=== PATIENT | male | born 1955 | race Caucasian/White ===

== ENCOUNTER 2020-06-23 14:39 | Inpatient (IN) | payer MEDICARE, OTHER ==
[~2020-06-23] VITALS: Ht 182.9 cm; Wt 63.2 kg
[2020-06-23] MEDS ORDERED: SODIUM CHLORIDE 0.9% 1,000 ML IV ONE ×3 (14:45→17:45)
[2020-06-23 15:12] LABS: Basophils # (auto) 0 10 ^3/uL (0-0.2); Basophils % (auto) 0.2 % (0.0-2.0); Eosinophils # (auto) 0 10 ^3/uL (0-0.8); Eosinophils % (auto) 0.1 % (0.0-7.0); Hemoglobin 12.7 g/dL (13.5-17.5); Lymphocytes # (auto) 0.3 10 ^3/uL (0.4-5.4); Lymphocytes % (auto) 3.8 % (10.0-50.0); Mean Corpuscular Hemoglobin 27.4 pg (28.0-32.0); Mean Corpuscular Hgb Conc. 32.6 g/dL (32.0-36.0); Monocytes # (auto) 0.5 10 ^3/uL (0-1.3); Monocytes % (auto) 5.2 % (0.0-12.0); Neutrophils # (auto) 8.1 10 ^3/uL (1.6-8.6); Neutrophils % (auto) 90.7 % (37.0-80.0); Red Blood Cells 4.65 10^6/uL (4.5-5.90); Red Cell Distribution Width 16.5 % (11.8-14.3)
[2020-06-23 15:29] LABS: Albumin 2.8 g/dL (3.4-5.0); Anion Gap 5 (5-15); Calcium 9.4 mg/dL (8.5-10.1); Carbon Dioxide 36 mmol/L (21-32); Chloride 91 mmol/L (98-107); Potassium 4.7 mmol/L (3.5-5.1); Sodium 132 mmol/L (136-145)
[2020-06-23 15:33] LABS: Alanine Aminotransferase 28 U/L (16-61); Aspartate Aminotransferase 16 U/L (15-37); Bilirubin, Total 0.7 mg/dL (0.2-1.0); GFR African American 111 mL/min; GFR Non-African American 92 mL/min; Total Protein 7.6 g/dL (6.4-8.2)
[2020-06-23 15:37] LABS: Alkaline Phosphatase 97 U/L (45-117)
[2020-06-23 15:38] LABS: Glucose 649 mg/dL (74-106)
[2020-06-23 15:40] LABS: INR 1.05 (0.9-1.15); Partial Thromboplastin Time 26.2 sec (23.0-31.2)
[2020-06-23] MEDS ORDERED: InsuLIN REG 1unit/0.01ml Soln (100units/ml) ONE (15:44)
[2020-06-23] MEDS ORDERED: InsuLIN REG 1unit/0.01ml Soln (100units/ml) IV ONE (15:45)
[2020-06-23 16:34] LABS: Blood Urea Nitrogen 16 mg/dL (7-18)
[2020-06-23] MEDS ORDERED: MORPHINE SULFATE INJECTION 2 MG/ML SYRG IV PRN ×2 (17:45)
[2020-06-23] MEDS ORDERED: ONDANSETRON HCL 4 MG/2 ML VIAL IV PRN (17:45)
[2020-06-23] MEDS ORDERED: DEXTROSE (50%) 50ML SYRG IV PRN (17:45)
[2020-06-23] MEDS ORDERED: NITROGLYCERIN 0.4 MG SL TAB SL PRN (17:45)
[2020-06-23] MEDS ORDERED: ALBUTEROL SULF 2.5 MG/0.5ML(0.5%) NEB SOLN NEB PRN (17:45)
[2020-06-23] MEDS ORDERED: IPRATROPIUM BROM 0.5 MG/2.5ML INH SOL NEB PRN (17:45)
[2020-06-23 18:06] LABS: Urine Bacteria NONE SEEN /hpf (None Seen); Urine Blood Negative /uL (Negative); Urine Specific Gravity 1.033 (1.001-1.035); Urine WBC 37 /hpf (0 - 3)
[2020-06-23 18:13] LABS: Cholesterol 90 mg/dL (< 200); Triglycerides 134 mg/dL (< 150)
[2020-06-23 18:16] LABS: HDL Cholesterol 42 mg/dL (40-59); LDL Cholesterol 33 mg/dL (< 100)
[2020-06-23 18:49] VITALS: BP 103/68
[2020-06-23] MEDS: SODIUM CHLORIDE 0.9% 1,000 ML IV SCH (19:26)
[2020-06-23] MEDS: InsuLIN REG 1unit/0.01ml Soln (100units/ml) SC SCH (19:57)
[2020-06-23] MEDS: ACCU-CHEK COMFORT CURVE STRIP VI SCH (19:57)
[2020-06-24] VITALS (18 sets, daily range): BP systolic 86–120; BP diastolic 55–76
[2020-06-24] MEDS: InsuLIN REG 1unit/0.01ml Soln (100units/ml) SC SCH ×7 (01:00→23:36)
[2020-06-24] MEDS: ACCU-CHEK COMFORT CURVE STRIP VI SCH ×7 (01:01→23:37)
[2020-06-24] MEDS: SODIUM CHLORIDE 0.9% 1,000 ML IV SCH ×3 (02:08→20:12)
[2020-06-24 08:01] LABS: Basophils # (auto) 0 10 ^3/uL (0-0.2); Basophils % (auto) 0.5 % (0.0-2.0); Eosinophils # (auto) 0.1 10 ^3/uL (0-0.8); Eosinophils % (auto) 2.7 % (0.0-7.0); Hematocrit 34.8 % (41.0-53.0); Hemoglobin 11.5 g/dL (13.5-17.5); Lymphocytes % (auto) 18.4 % (10.0-50.0); Mean Corpuscular Hemoglobin 27.5 pg (28.0-32.0); Mean Corpuscular Hgb Conc. 33.1 g/dL (32.0-36.0); Mean Corpuscular Volume 82.9 fL (80.0-100.0); Monocytes # (auto) 0.4 10 ^3/uL (0-1.3); Monocytes % (auto) 7.1 % (0.0-12.0); Neutrophils # (auto) 3.9 10 ^3/uL (1.6-8.6); Neutrophils % (auto) 71.3 % (37.0-80.0); Nucleated Red Blood Cells % 0.1 %; Red Cell Distribution Width 16.5 % (11.8-14.3); White Blood Cell 5.4 10^3/uL (4.4-10.8)
[2020-06-24 08:14] LABS: Albumin 2.4 g/dL (3.4-5.0); Calcium 8.7 mg/dL (8.5-10.1); Potassium 3.4 mmol/L (3.5-5.1)
[2020-06-24 08:17] LABS: BUN/Creatinine Ratio 23.7; Bilirubin, Total 0.5 mg/dL (0.2-1.0); Total Protein 6.5 g/dL (6.4-8.2)
[2020-06-24] MEDS ORDERED: cefTRIAXone 1GM/50ML D5W 50 ML IV SCH (09:00)
[2020-06-24] MEDS ORDERED: POTASSIUM EFFERVESENT TAB 25 MEQ GT ONE (10:00)
[2020-06-24] MEDS ORDERED: PIPERACILLIN-TAZOB 3.375GM 100 ML IV ONE (10:00)
[2020-06-24] MEDS: IPRATROPIUM BROM 0.5 MG/2.5ML INH SOL NEB SCH ×2 (11:40→19:07)
[2020-06-24] MEDS: BUDESONIDE (INHALATION) 0.5 MG/2 ML NEB NEB SCH ×2 (11:40→23:55)
[2020-06-24] MEDS: ALBUTEROL SULF 2.5 MG/0.5ML(0.5%) NEB SOLN NEB SCH ×2 (11:41→19:07)
[2020-06-24] MEDS: AZITHROMYCIN 500MG/ 250ML 250 ML IV SCH (12:26)
[2020-06-24] MEDS: PANTOPRAZOLE 40 MG/10 ML VIAL INJ IV SCH (12:27)
[2020-06-24] MEDS: Glucerna Carbsteady SHAKE Stawberry 8oz PO SCH ×4 (13:50→21:37)
[2020-06-24] MEDS ORDERED: metroNIDAZOLE 500MG/100ML 100 ML IV SCH (14:00)
[2020-06-24] MEDS: PIPERACILLIN-TAZOB 3.375GM 100 ML IV SCH ×2 (15:15→22:34)
[2020-06-25] MEDS: InsuLIN REG 1unit/0.01ml Soln (100units/ml) SC SCH ×5 (04:00→23:39)
[2020-06-25] MEDS: ACCU-CHEK COMFORT CURVE STRIP VI SCH ×5 (04:17→23:35)
[2020-06-25 05:00] VITALS: BP 100/55
[2020-06-25] MEDS: ALBUTEROL SULF 2.5 MG/0.5ML(0.5%) NEB SOLN NEB SCH ×4 (06:00→19:19)
[2020-06-25] MEDS: IPRATROPIUM BROM 0.5 MG/2.5ML INH SOL NEB SCH ×4 (06:00→19:19)
[2020-06-25 06:34] LABS: Basophils # (auto) 0 10 ^3/uL (0-0.2); Basophils % (auto) 0.6 % (0.0-2.0); Eosinophils # (auto) 0.2 10 ^3/uL (0-0.8); Eosinophils % (auto) 3.2 % (0.0-7.0); Hematocrit 34.5 % (41.0-53.0); Hemoglobin 11.4 g/dL (13.5-17.5); Lymphocytes # (auto) 0.5 10 ^3/uL (0.4-5.4); Lymphocytes % (auto) 9.2 % (10.0-50.0); Mean Corpuscular Hemoglobin 27.2 pg (28.0-32.0); Mean Corpuscular Hgb Conc. 33.1 g/dL (32.0-36.0); Monocytes # (auto) 0.3 10 ^3/uL (0-1.3); Monocytes % (auto) 5.1 % (0.0-12.0); Neutrophils # (auto) 4.1 10 ^3/uL (1.6-8.6); Neutrophils % (auto) 81.9 % (37.0-80.0); Nucleated Red Blood Cells % 0.2 %; Red Blood Cells 4.21 10^6/uL (4.5-5.90); Red Cell Distribution Width 16.4 % (11.8-14.3)
[2020-06-25] MEDS: SODIUM CHLORIDE 0.9% 1,000 ML IV SCH (06:39)
[2020-06-25] MEDS: PIPERACILLIN-TAZOB 3.375GM 100 ML IV SCH ×3 (06:40→21:59)
[2020-06-25] MEDS: Glucerna Carbsteady SHAKE Stawberry 8oz PO SCH ×4 (06:40→21:59)
[2020-06-25 06:52] LABS: Calcium 8.9 mg/dL (8.5-10.1); Potassium 3.7 mmol/L (3.5-5.1)
[2020-06-25 06:57] LABS: BUN/Creatinine Ratio 29.6
[2020-06-25] MEDS: BUDESONIDE (INHALATION) 0.5 MG/2 ML NEB NEB SCH ×2 (08:52→19:19)
[2020-06-25 09:00] VITALS: BP 95/60
[2020-06-25] MEDS: AZITHROMYCIN 500MG/ 250ML 250 ML IV SCH (09:35)
[2020-06-25] MEDS: PANTOPRAZOLE 40 MG/10 ML VIAL INJ IV SCH (09:35)
[2020-06-25] MEDS ORDERED: AMIT25TA12 PO (10:12)
[2020-06-25] MEDS ORDERED: LEVO150T10 PO (10:12)
[2020-06-25] MEDS ORDERED: ESZO1TAB21 PO (10:12)
[2020-06-25] MEDS ORDERED: LEVOTHYROXINE SODIUM 50 MCG TAB PO ONE (11:45)
[2020-06-25] MEDS ORDERED: DEXTROSE (50%) 50ML SYRG IV PRN (11:45)
[2020-06-25 13:00] VITALS: BP 88/56
[2020-06-25 17:00] VITALS: BP 94/63
[2020-06-25] MEDS: MUPIROCIN 2% OINT 15gm or 22gm EACHNOSTRI SCH (21:58)
[2020-06-25] MEDS: DOCUSATE ORAL LIQUID 100 MG/10 ML UD GT SCH (21:59)
[2020-06-25 22:00] VITALS: BP 101/60
[2020-06-25] MEDS ORDERED: DOCUSATE SOD 100 MG CAP PO SCH (22:00)
[2020-06-26 05:08] VITALS: BP 101/72
[2020-06-26] MEDS: PIPERACILLIN-TAZOB 3.375GM 100 ML IV SCH ×3 (05:33→21:07)
[2020-06-26] MEDS: Glucerna Carbsteady SHAKE Stawberry 8oz PO SCH ×5 (05:34→21:06)
[2020-06-26] MEDS: ACCU-CHEK COMFORT CURVE STRIP VI SCH ×4 (05:34→23:55)
[2020-06-26] MEDS: InsuLIN REG 1unit/0.01ml Soln (100units/ml) SC SCH ×3 (05:57→18:15)
[2020-06-26] MEDS: LEVOTHYROXINE SODIUM 50 MCG TAB PO SCH (06:02)
[2020-06-26] MEDS: IPRATROPIUM BROM 0.5 MG/2.5ML INH SOL NEB SCH ×3 (06:18→19:20)
[2020-06-26] MEDS: ALBUTEROL SULF 2.5 MG/0.5ML(0.5%) NEB SOLN NEB SCH ×3 (06:18→19:20)
[2020-06-26] MEDS: BUDESONIDE (INHALATION) 0.5 MG/2 ML NEB NEB SCH ×2 (06:19→19:20)
[2020-06-26 08:31] VITALS: BP 118/73
[2020-06-26] MEDS: DOCUSATE ORAL LIQUID 100 MG/10 ML UD GT SCH ×3 (10:00→21:06)
[2020-06-26] MEDS: AZITHROMYCIN 250 MG TAB PO SCH (10:02)
[2020-06-26] MEDS: PANTOPRAZOLE 40 MG/10 ML VIAL INJ IV SCH (10:03)
[2020-06-26] MEDS: FLORASTOR (S. BOULARDII) 250 MG CAP PO SCH (10:03)
[2020-06-26] MEDS: MUPIROCIN 2% OINT 15gm or 22gm EACHNOSTRI SCH ×2 (10:38→21:06)
[2020-06-26 12:37] VITALS: BP 93/54
[2020-06-26 16:38] VITALS: BP 88/58
[2020-06-26 21:24] VITALS: BP 88/58
[2020-06-26 22:00] VITALS: BP 98/67
[2020-06-27] MEDS: InsuLIN REG 1unit/0.01ml Soln (100units/ml) SC SCH ×5 (00:05→23:52)
[2020-06-27] MEDS ORDERED: GABA300C10 PO (00:21)
[2020-06-27] MEDS ORDERED: FLUT250M2 INH (00:21)
[2020-06-27] MEDS ORDERED: IPRIH INH (00:21)
[2020-06-27] MEDS ORDERED: PANT40T PO (00:21)
[2020-06-27] MEDS ORDERED: ESZO1TAB13 PO (00:21)
[2020-06-27] MEDS ORDERED: ROSU40TA PO (00:21)
[2020-06-27 05:00] VITALS: BP 93/63
[2020-06-27] MEDS: ACCU-CHEK COMFORT CURVE STRIP VI SCH ×4 (06:08→23:50)
[2020-06-27] MEDS: PIPERACILLIN-TAZOB 3.375GM 100 ML IV SCH ×3 (06:08→21:43)
[2020-06-27] MEDS: Glucerna Carbsteady SHAKE Stawberry 8oz PO SCH ×6 (06:08→21:42)
[2020-06-27] MEDS: LEVOTHYROXINE SODIUM 50 MCG TAB PO SCH (06:09)
[2020-06-27 07:29] LABS: Basophils # (auto) 0 10 ^3/uL (0-0.2); Basophils % (auto) 0.4 % (0.0-2.0); Eosinophils # (auto) 0.1 10 ^3/uL (0-0.8); Eosinophils % (auto) 2.1 % (0.0-7.0); Hematocrit 34.3 % (41.0-53.0); Hemoglobin 11.4 g/dL (13.5-17.5); Lymphocytes # (auto) 0.6 10 ^3/uL (0.4-5.4); Lymphocytes % (auto) 13.7 % (10.0-50.0); Mean Corpuscular Hemoglobin 27.3 pg (28.0-32.0); Mean Corpuscular Hgb Conc. 33.2 g/dL (32.0-36.0); Mean Corpuscular Volume 82.2 fL (80.0-100.0); Monocytes # (auto) 0.4 10 ^3/uL (0-1.3); Monocytes % (auto) 8.9 % (0.0-12.0); Neutrophils # (auto) 3.2 10 ^3/uL (1.6-8.6); Neutrophils % (auto) 74.9 % (37.0-80.0); Red Blood Cells 4.18 10^6/uL (4.5-5.90); Red Cell Distribution Width 15.9 % (11.8-14.3); White Blood Cell 4.3 10^3/uL (4.4-10.8)
[2020-06-27 07:46] LABS: Calcium 8.7 mg/dL (8.5-10.1); Potassium 3.4 mmol/L (3.5-5.1)
[2020-06-27 07:52] LABS: Albumin 2.4 g/dL (3.4-5.0); BUN/Creatinine Ratio 15.2; Bilirubin, Total 0.5 mg/dL (0.2-1.0); Total Protein 6.4 g/dL (6.4-8.2)
[2020-06-27] MEDS: ALBUTEROL SULF 2.5 MG/0.5ML(0.5%) NEB SOLN NEB SCH ×3 (07:52→18:15)
[2020-06-27] MEDS: IPRATROPIUM BROM 0.5 MG/2.5ML INH SOL NEB SCH ×3 (07:52→18:15)
[2020-06-27] MEDS: BUDESONIDE (INHALATION) 0.5 MG/2 ML NEB NEB SCH ×2 (07:52→18:15)
[2020-06-27 09:00] VITALS: BP 92/61
[2020-06-27] MEDS: DOCUSATE ORAL LIQUID 100 MG/10 ML UD GT SCH ×2 (09:09→21:43)
[2020-06-27] MEDS: FLORASTOR (S. BOULARDII) 250 MG CAP PO SCH (09:09)
[2020-06-27] MEDS: PANTOPRAZOLE 40 MG/10 ML VIAL INJ IV SCH (09:09)
[2020-06-27] MEDS: MUPIROCIN 2% OINT 15gm or 22gm EACHNOSTRI SCH ×2 (09:09→21:42)
[2020-06-27] MEDS: AZITHROMYCIN 250 MG TAB PO SCH (09:10)
[2020-06-27] MEDS ORDERED: POTASSIUM CHL 20 Meq TABLET PO ONE (11:45)
[2020-06-27 13:00] VITALS: BP 88/46
[2020-06-27] MEDS ORDERED: POTASSIUM CHLORIDE 20 MEQ, LIDOCAINE 1% (LOCAL ANESTH.) 2 ML in SODIUM CHL 0.9% 100 ML IV ONE (13:45)
[2020-06-27 17:00] VITALS: BP 103/68
[2020-06-27] MEDS: ESZOPICLONE 1 MG GT SCH (21:42)
[2020-06-27] MEDS: AMITRIPTYLINE HCL 25 MG TAB PO SCH (21:43)
[2020-06-27 22:00] VITALS: BP 98/65
[2020-06-28 05:00] VITALS: BP 113/72
[2020-06-28] MEDS: PIPERACILLIN-TAZOB 3.375GM 100 ML IV SCH ×3 (06:12→21:20)
[2020-06-28] MEDS: Glucerna Carbsteady SHAKE Stawberry 8oz PO SCH ×6 (06:12→21:21)
[2020-06-28] MEDS: InsuLIN REG 1unit/0.01ml Soln (100units/ml) SC SCH ×4 (06:12→23:20)
[2020-06-28] MEDS: ACCU-CHEK COMFORT CURVE STRIP VI SCH ×4 (06:13→23:18)
[2020-06-28] MEDS: LEVOTHYROXINE SODIUM 50 MCG TAB PO SCH (06:13)
[2020-06-28 06:29] LABS: Basophils # (auto) 0 10 ^3/uL (0-0.2); Basophils % (auto) 0.2 % (0.0-2.0); Eosinophils # (auto) 0 10 ^3/uL (0-0.8); Eosinophils % (auto) 0.7 % (0.0-7.0); Hematocrit 35.2 % (41.0-53.0); Hemoglobin 11.7 g/dL (13.5-17.5); Lymphocytes # (auto) 0.6 10 ^3/uL (0.4-5.4); Lymphocytes % (auto) 9.5 % (10.0-50.0); Mean Corpuscular Hemoglobin 27.6 pg (28.0-32.0); Mean Corpuscular Hgb Conc. 33.2 g/dL (32.0-36.0); Monocytes # (auto) 0.5 10 ^3/uL (0-1.3); Monocytes % (auto) 7.2 % (0.0-12.0); Neutrophils # (auto) 5.3 10 ^3/uL (1.6-8.6); Neutrophils % (auto) 82.4 % (37.0-80.0); Red Blood Cells 4.24 10^6/uL (4.5-5.90); Red Cell Distribution Width 16.2 % (11.8-14.3); White Blood Cell 6.4 10^3/uL (4.4-10.8)
[2020-06-28] MEDS: BUDESONIDE (INHALATION) 0.5 MG/2 ML NEB NEB SCH ×2 (06:37→19:01)
[2020-06-28] MEDS: ALBUTEROL SULF 2.5 MG/0.5ML(0.5%) NEB SOLN NEB SCH ×3 (06:37→19:01)
[2020-06-28] MEDS: IPRATROPIUM BROM 0.5 MG/2.5ML INH SOL NEB SCH ×3 (06:37→19:01)
[2020-06-28 06:48] LABS: Potassium 3.7 mmol/L (3.5-5.1)
[2020-06-28 06:56] LABS: Albumin 2.5 g/dL (3.4-5.0); BUN/Creatinine Ratio 19.2; Bilirubin, Total 0.6 mg/dL (0.2-1.0); Calcium 9.1 mg/dL (8.5-10.1); Total Protein 6.8 g/dL (6.4-8.2)
[2020-06-28] MEDS: DOCUSATE ORAL LIQUID 100 MG/10 ML UD GT SCH ×2 (08:16→21:49)
[2020-06-28] MEDS: PANTOPRAZOLE 40 MG/10 ML VIAL INJ IV SCH (08:16)
[2020-06-28] MEDS: MUPIROCIN 2% OINT 15gm or 22gm EACHNOSTRI SCH ×2 (08:16→21:21)
[2020-06-28] MEDS: FLORASTOR (S. BOULARDII) 250 MG CAP PO SCH (08:17)
[2020-06-28] MEDS: AZITHROMYCIN 250 MG TAB PO SCH (08:17)
[2020-06-28 08:36] VITALS: BP 104/65
[2020-06-28] MEDS ORDERED: metFORMIN HYDROCHLORIDE 500 MG TAB PO ONE (10:45)
[2020-06-28 13:00] VITALS: BP 99/68
[2020-06-28 17:00] VITALS: BP 131/77
[2020-06-28] MEDS: metFORMIN HYDROCHLORIDE 500 MG TAB PO SCH (17:45)
[2020-06-28] MEDS: AMITRIPTYLINE HCL 25 MG TAB PO SCH (21:20)
[2020-06-28] MEDS: ESZOPICLONE 1 MG GT SCH (21:20)
[2020-06-28 22:00] VITALS: BP 111/63
[2020-06-29 05:00] VITALS: BP 111/75
[2020-06-29] MEDS: InsuLIN REG 1unit/0.01ml Soln (100units/ml) SC SCH ×4 (06:00→23:33)
[2020-06-29] MEDS: ACCU-CHEK COMFORT CURVE STRIP VI SCH ×4 (06:26→23:32)
[2020-06-29] MEDS: PIPERACILLIN-TAZOB 3.375GM 100 ML IV SCH (06:26)
[2020-06-29] MEDS: Glucerna Carbsteady SHAKE Stawberry 8oz PO SCH ×4 (06:26→15:45)
[2020-06-29] MEDS: LEVOTHYROXINE SODIUM 50 MCG TAB PO SCH (06:27)
[2020-06-29] MEDS: IPRATROPIUM BROM 0.5 MG/2.5ML INH SOL NEB SCH ×3 (07:52→18:55)
[2020-06-29] MEDS: BUDESONIDE (INHALATION) 0.5 MG/2 ML NEB NEB SCH ×2 (07:52→18:55)
[2020-06-29] MEDS: ALBUTEROL SULF 2.5 MG/0.5ML(0.5%) NEB SOLN NEB SCH ×3 (07:52→18:55)
[2020-06-29 08:21] LABS: Basophils # (auto) 0 10 ^3/uL (0-0.2); Basophils % (auto) 0.4 % (0.0-2.0); Eosinophils # (auto) 0.1 10 ^3/uL (0-0.8); Eosinophils % (auto) 2.3 % (0.0-7.0); Hematocrit 36.6 % (41.0-53.0); Hemoglobin 12.3 g/dL (13.5-17.5); Lymphocytes # (auto) 0.6 10 ^3/uL (0.4-5.4); Lymphocytes % (auto) 11.8 % (10.0-50.0); Mean Corpuscular Hemoglobin 27.7 pg (28.0-32.0); Mean Corpuscular Hgb Conc. 33.6 g/dL (32.0-36.0); Mean Corpuscular Volume 82.6 fL (80.0-100.0); Monocytes # (auto) 0.4 10 ^3/uL (0-1.3); Monocytes % (auto) 8.1 % (0.0-12.0); Neutrophils # (auto) 4.3 10 ^3/uL (1.6-8.6); Neutrophils % (auto) 77.4 % (37.0-80.0); Nucleated Red Blood Cells % 0.2 %; Red Blood Cells 4.43 10^6/uL (4.5-5.90); Red Cell Distribution Width 16.6 % (11.8-14.3); White Blood Cell 5.5 10^3/uL (4.4-10.8)
[2020-06-29 08:47] VITALS: BP 98/49
[2020-06-29 09:00] LABS: Potassium 3.5 mmol/L (3.5-5.1)
[2020-06-29 09:17] LABS: BUN/Creatinine Ratio 18.2; Calcium 9.6 mg/dL (8.5-10.1)
[2020-06-29] MEDS: DOCUSATE ORAL LIQUID 100 MG/10 ML UD GT SCH ×2 (10:00→21:26)
[2020-06-29] MEDS: metFORMIN HYDROCHLORIDE 500 MG TAB PO SCH (10:12)
[2020-06-29] MEDS: MUPIROCIN 2% OINT 15gm or 22gm EACHNOSTRI SCH ×2 (10:12→21:19)
[2020-06-29] MEDS: AZITHROMYCIN 250 MG TAB PO SCH (10:13)
[2020-06-29] MEDS: FLORASTOR (S. BOULARDII) 250 MG CAP PO SCH (10:13)
[2020-06-29] MEDS: PANTOPRAZOLE 40 MG/10 ML VIAL INJ IV SCH (10:13)
[2020-06-29] MEDS ORDERED: VANCOMYCIN PER PHARMACY 0 MG IV SCH (11:15)
[2020-06-29] MEDS ORDERED: FAMOTIDINE 20 MG TAB PO ONE (12:00)
[2020-06-29] MEDS ORDERED: levoFLOXacin 500MG 100 ML IV ONE (12:00)
[2020-06-29 13:00] VITALS: BP 98/65
[2020-06-29] MEDS ORDERED: GABAPENTIN 300 MG CAP PO SCH (14:00)
[2020-06-29] MEDS: VANCOMYCIN 750mg/250ml 250 ML IV SCH ×2 (15:00→20:33)
[2020-06-29 16:40] VITALS: BP 93/63
[2020-06-29] MEDS: metFORMIN HYDROCHLORIDE 500 MG TAB PEG SCH (18:02)
[2020-06-29] MEDS: Glucerna Carbsteady SHAKE Stawberry 8oz PEG SCH ×2 (18:02→20:33)
[2020-06-29] MEDS: GABAPENTIN 300 MG CAP PEG SCH (21:19)
[2020-06-29] MEDS: AMITRIPTYLINE HCL 25 MG TAB PO SCH (21:25)
[2020-06-29] MEDS: ESZOPICLONE 1 MG GT SCH (21:26)
[2020-06-29 22:00] VITALS: BP 95/57
[2020-06-30 01:05] VITALS: BP 95/57
[2020-06-30] MEDS: VANCOMYCIN 750mg/250ml 250 ML IV SCH ×2 (04:35→12:58)
[2020-06-30 05:00] VITALS: BP 99/68
[2020-06-30] MEDS: Glucerna Carbsteady SHAKE Stawberry 8oz PEG SCH ×6 (06:03→21:44)
[2020-06-30] MEDS: ACCU-CHEK COMFORT CURVE STRIP VI SCH ×4 (06:03→23:18)
[2020-06-30] MEDS: InsuLIN REG 1unit/0.01ml Soln (100units/ml) SC SCH ×4 (06:08→23:19)
[2020-06-30] MEDS: GABAPENTIN 300 MG CAP PEG SCH ×3 (06:11→21:45)
[2020-06-30] MEDS: LEVOTHYROXINE SODIUM 50 MCG TAB PEG SCH (06:12)
[2020-06-30] MEDS: BUDESONIDE (INHALATION) 0.5 MG/2 ML NEB NEB SCH ×2 (07:23→19:01)
[2020-06-30] MEDS: IPRATROPIUM BROM 0.5 MG/2.5ML INH SOL NEB SCH ×3 (07:23→19:02)
[2020-06-30] MEDS: ALBUTEROL SULF 2.5 MG/0.5ML(0.5%) NEB SOLN NEB SCH ×3 (07:23→19:02)
[2020-06-30 08:40] VITALS: BP 88/60
[2020-06-30] MEDS: MUPIROCIN 2% OINT 15gm or 22gm EACHNOSTRI SCH (08:40)
[2020-06-30] MEDS: FLORASTOR (S. BOULARDII) 250 MG CAP PEG SCH (08:40)
[2020-06-30] MEDS: DOCUSATE ORAL LIQUID 100 MG/10 ML UD GT SCH ×2 (08:40→21:45)
[2020-06-30] MEDS: metFORMIN HYDROCHLORIDE 500 MG TAB PEG SCH ×2 (08:40→18:24)
[2020-06-30] MEDS: levoFLOXacin 500MG 100 ML IV SCH (08:40)
[2020-06-30] MEDS: FAMOTIDINE 20 MG TAB PEG SCH (08:41)
[2020-06-30] MEDS ORDERED: FAMOTIDINE 20 MG TAB PO SCH (10:00)
[2020-06-30 13:00] VITALS: BP 85/61
[2020-06-30] MEDS ORDERED: ACETAMINOPHEN 325 MG TAB PO PRN (17:45)
[2020-06-30] MEDS: ESZOPICLONE 1 MG GT SCH (21:44)
[2020-06-30] MEDS: AMITRIPTYLINE HCL 25 MG TAB PO SCH (21:45)
[2020-06-30] MEDS ORDERED: ALBUMIN 5% 250 ML IV ONE (22:00)
[2020-06-30 22:35] VITALS: BP 90/61
[2020-06-30] MEDS: VANCOMYCIN 1GM/250ML 250 ML IV SCH (23:11)
[2020-07-01 05:13] VITALS: BP 94/66
[2020-07-01] MEDS: InsuLIN REG 1unit/0.01ml Soln (100units/ml) SC SCH ×4 (06:00→23:42)
[2020-07-01] MEDS: ACCU-CHEK COMFORT CURVE STRIP VI SCH ×4 (06:06→23:41)
[2020-07-01] MEDS: GABAPENTIN 300 MG CAP PEG SCH ×3 (06:15→21:19)
[2020-07-01] MEDS: Glucerna Carbsteady SHAKE Stawberry 8oz PEG SCH ×6 (06:15→21:09)
[2020-07-01] MEDS: LEVOTHYROXINE SODIUM 50 MCG TAB PEG SCH (06:15)
[2020-07-01] MEDS: ALBUTEROL SULF 2.5 MG/0.5ML(0.5%) NEB SOLN NEB SCH ×3 (06:48→18:57)
[2020-07-01] MEDS: IPRATROPIUM BROM 0.5 MG/2.5ML INH SOL NEB SCH ×3 (06:48→18:57)
[2020-07-01] MEDS: BUDESONIDE (INHALATION) 0.5 MG/2 ML NEB NEB SCH ×2 (06:48→18:56)
[2020-07-01] MEDS: metFORMIN HYDROCHLORIDE 500 MG TAB PEG SCH ×2 (08:20→17:52)
[2020-07-01 09:00] VITALS: BP 91/58
[2020-07-01] MEDS: VANCOMYCIN 1GM/250ML 250 ML IV SCH (09:26)
[2020-07-01] MEDS: DOCUSATE ORAL LIQUID 100 MG/10 ML UD GT SCH ×2 (10:00→21:18)
[2020-07-01] MEDS: FLORASTOR (S. BOULARDII) 250 MG CAP PEG SCH (11:13)
[2020-07-01] MEDS: levoFLOXacin 500MG 100 ML IV SCH (11:13)
[2020-07-01] MEDS: FAMOTIDINE 20 MG TAB PEG SCH (11:14)
[2020-07-01] MEDS: DOXYCYCLINE 100MG/250ML 250 ML IV SCH ×2 (12:12→22:00)
[2020-07-01 13:00] VITALS: BP 87/58
[2020-07-01 16:36] VITALS: BP 85/50
[2020-07-01] MEDS: ESZOPICLONE 1 MG GT SCH (21:18)
[2020-07-01] MEDS: AMITRIPTYLINE HCL 25 MG TAB PO SCH (21:19)
[2020-07-01 22:00] VITALS: BP 91/62
[2020-07-02 04:37] VITALS: BP 105/67
[2020-07-02] MEDS: ALBUTEROL SULF 2.5 MG/0.5ML(0.5%) NEB SOLN NEB SCH ×2 (06:01→11:10)
[2020-07-02] MEDS: IPRATROPIUM BROM 0.5 MG/2.5ML INH SOL NEB SCH ×2 (06:01→11:09)
[2020-07-02] MEDS: BUDESONIDE (INHALATION) 0.5 MG/2 ML NEB NEB SCH (06:01)
[2020-07-02] MEDS: ACCU-CHEK COMFORT CURVE STRIP VI SCH ×2 (06:06→11:39)
[2020-07-02] MEDS: GABAPENTIN 300 MG CAP PEG SCH ×2 (06:06→13:13)
[2020-07-02] MEDS: Glucerna Carbsteady SHAKE Stawberry 8oz PEG SCH ×3 (06:06→11:39)
[2020-07-02] MEDS: InsuLIN REG 1unit/0.01ml Soln (100units/ml) SC SCH ×2 (06:09→11:46)
[2020-07-02] MEDS: LEVOTHYROXINE SODIUM 50 MCG TAB PEG SCH (06:12)
[2020-07-02] MEDS: metFORMIN HYDROCHLORIDE 500 MG TAB PEG SCH (07:53)
[2020-07-02 08:33] VITALS: BP 99/64
[2020-07-02] MEDS: levoFLOXacin 500MG 100 ML IV SCH (09:00)
[2020-07-02] MEDS: DOCUSATE ORAL LIQUID 100 MG/10 ML UD GT SCH (09:00)
[2020-07-02] MEDS: FLORASTOR (S. BOULARDII) 250 MG CAP PEG SCH (09:00)
[2020-07-02] MEDS: FAMOTIDINE 20 MG TAB PEG SCH (09:00)
[2020-07-02] MEDS: DOXYCYCLINE 100MG/250ML 250 ML IV SCH (10:25)
[2020-07-02 10:48] VITALS: BP 99/64
[2020-07-02 12:47] VITALS: BP 96/60
[2020-07-29] MEDS ORDERED: LEVO750T8 PO (14:06)
== END 2020-07-02 14:25 | disposition home health service (06) | DRG 177 ==
LOC: EDBD 14:39 → ER 14:39 → TELE 17:39 → DOU IN ICU 06-24 05:40 → TELE-EAST 06-24 21:27
PROVIDERS: ADMIT Nurse Practitioner Acute Care; ATTEND Internal Medicine
DX: J69.0 Pneumonitis due to inhalation of food and vomit (principal); N17.0 Acute kidney failure with tubular necrosis; J96.21 Acute and chronic respiratory failure with hypoxia; N39.0 Urinary tract infection, site not specified; Z68.1 Body mass index [BMI] 19.9 or less, adult; E44.0 Moderate protein-calorie malnutrition; E11.65 Type 2 diabetes mellitus with hyperglycemia; J44.9 Chronic obstructive pulmonary disease, unspecified; E86.0 Dehydration; R13.10 Dysphagia, unspecified; E03.9 Hypothyroidism, unspecified; A49.02 Methicillin resistant Staphylococcus aureus infection, unspecified site; E11.22 Type 2 diabetes mellitus with diabetic chronic kidney disease; E11.40 Type 2 diabetes mellitus with diabetic neuropathy, unspecified; E78.5 Hyperlipidemia, unspecified; E87.6 Hypokalemia; I12.9 Hypertensive chronic kidney disease with stage 1 through stage 4 chronic kidney disease, or unspecified chronic kidney disease; N18.9 Chronic kidney disease, unspecified; N40.0 Benign prostatic hyperplasia without lower urinary tract symptoms; Z20.822 Contact with and (suspected) exposure to COVID-19; Z79.4 Long term (current) use of insulin; Z87.01 Personal history of pneumonia (recurrent); Z87.891 Personal history of nicotine dependence; Z92.21 Personal history of antineoplastic chemotherapy; Z92.3 Personal history of irradiation; Z85.819 Personal history of malignant neoplasm of unspecified site of lip, oral cavity, and pharynx; Z93.1 Gastrostomy status; Z86.73 Personal history of transient ischemic attack (TIA), and cerebral infarction without residual deficits
CPT/HCPCS: 36415; 36600; 71045; 80048; 80053; 80061; 80202; 81001; 82565; 82805; 82962; 83036; 83605; 83880; 84443; 84484; 85025; 85379; 85610; 85730; 87040; 87070; 87077; 87081; 87086; 87186; 87205; 87426; 92610; 93005; 93306; 93970; 94640; 96361; 96374; 97110; 97116; 97163; C9113; G0378; J1815; J1956; J2001; J2543; J3490

== ENCOUNTER 2020-07-24 22:23 | Inpatient (IN) | payer MEDICARE, OTHER ==
[~2020-07-24] VITALS: Ht 182.9 cm; Wt 62.2 kg
[~2020-07-24 22:23] MED LIST: AMIT25TA9 PO; ESZO1TAB13 PO; FLUT250M2 INH; GABA300C10 PO; IPRIH INH; LEVO150T10 PO; PANT40T PO; ROSU40TA PO
[2020-07-24 23:39] LABS: Basophils # (auto) 0 10 ^3/uL (0-0.2); Basophils % (auto) 0.1 % (0.0-2.0); Eosinophils # (auto) 0 10 ^3/uL (0-0.8); Eosinophils % (auto) 0.5 % (0.0-7.0); Hematocrit 33.7 % (41.0-53.0); Hemoglobin 11.4 g/dL (13.5-17.5); Lymphocytes # (auto) 0.4 10 ^3/uL (0.4-5.4); Lymphocytes % (auto) 3.6 % (10.0-50.0); Mean Corpuscular Hemoglobin 27.3 pg (28.0-32.0); Mean Corpuscular Hgb Conc. 33.8 g/dL (32.0-36.0); Mean Corpuscular Volume 80.7 fL (80.0-100.0); Monocytes # (auto) 0.4 10 ^3/uL (0-1.3); Monocytes % (auto) 4.6 % (0.0-12.0); Neutrophils # (auto) 8.9 10 ^3/uL (1.6-8.6); Neutrophils % (auto) 91.2 % (37.0-80.0); Nucleated Red Blood Cells % 0.3 %; Platelet Count (auto) 184 10^3/uL (140-450); Red Blood Cells 4.18 10^6/uL (4.5-5.90); Red Cell Distribution Width 15.6 % (11.8-14.3); White Blood Cell 9.8 10^3/uL (4.4-10.8)
[2020-07-24] MEDS ORDERED: SODIUM CHLORIDE 0.9% 2,000 ML IV ONE (23:45)
[2020-07-24] MEDS ORDERED: VANCOMYCIN 1GM/250ML 250 ML IV ONE (23:45)
[2020-07-24 23:53] LABS: Albumin 2.7 g/dL (3.4-5.0); Anion Gap 7 (5-15); BUN/Creatinine Ratio 29.6; Blood Urea Nitrogen 16 mg/dL (7-18); Calcium 8.7 mg/dL (8.5-10.1); Carbon Dioxide 30 mmol/L (21-32); Chloride 100 mmol/L (98-107); GFR African American 198 mL/min; GFR Non-African American 163 mL/min; Glucose 163 mg/dL (74-106); Potassium 4.1 mmol/L (3.5-5.1); Sodium 137 mmol/L (136-145)
[2020-07-24 23:56] LABS: Lactic Acid w/Reflex 2.4 mmol/L (0.4-2.0)
[2020-07-25] MEDS ORDERED: MEROPENEM 1GM IVPB 100 ML IV ONE (00:01)
[2020-07-25 00:09] LABS: Alanine Aminotransferase 33 U/L (16-61); Alkaline Phosphatase 82 U/L (45-117); Aspartate Aminotransferase 25 U/L (15-37); Bilirubin, Total 0.5 mg/dL (0.2-1.0); Total Protein 7.1 g/dL (6.4-8.2)
[2020-07-25] MEDS: MEROPENEM 1GM IVPB 100 ML IV SCH ×3 (00:58→19:38)
[2020-07-25] MEDS ORDERED: PIPERACILLIN-TAZO 4.5GM 100 ML IV ONE (02:00)
[2020-07-25] MEDS ORDERED: SODIUM CHLORIDE 0.9% 1,000 ML IV ONE (03:15)
[2020-07-25 04:51] LABS: Urine Bacteria NONE SEEN /hpf (None Seen); Urine Blood Negative /uL (Negative); Urine Specific Gravity 1.007 (1.001-1.035); Urine WBC 1 /hpf (0 - 3)
[2020-07-25] MEDS ORDERED: PATIENTS OWN MEDICATION IV SCH (06:00)
[2020-07-25] MEDS ORDERED: HYDROcodone-ACET 5/325MG TAB PO PRN (08:15)
[2020-07-25] MEDS ORDERED: NITROGLYCERIN 0.4 MG SL TAB SL PRN (08:15)
[2020-07-25] MEDS ORDERED: MORPHINE SULF INJ 2 MG/ML SYRINGE 1ML IV PRN (08:15)
[2020-07-25] MEDS ORDERED: DOCUSATE SOD 100 MG CAP PO PRN (08:15)
[2020-07-25] MEDS ORDERED: IPRATROPIUM BROM 0.5 MG/2.5ML INH SOL NEB PRN (08:15)
[2020-07-25] MEDS ORDERED: ONDANSETRON HCL 4 MG/2 ML VIAL IV PRN (08:15)
[2020-07-25] MEDS ORDERED: ALBUTEROL SULF 2.5 MG/0.5ML(0.5%) NEB SOLN NEB PRN (08:15)
[2020-07-25 08:43] VITALS: BP 103/64
[2020-07-25 09:25] LABS: Hemoglobin 10.2 g/dL (13.5-17.5); Mean Corpuscular Hemoglobin 26.8 pg (28.0-32.0)
[2020-07-25 09:26] LABS: Basophils # (auto) 0 10 ^3/uL (0-0.2); Basophils % (auto) 0.1 % (0.0-2.0); Eosinophils # (auto) 0 10 ^3/uL (0-0.8); Eosinophils % (auto) 0.3 % (0.0-7.0); Hematocrit 30.6 % (41.0-53.0); Lymphocytes # (auto) 0.7 10 ^3/uL (0.4-5.4); Lymphocytes % (auto) 7.9 % (10.0-50.0); Mean Corpuscular Hgb Conc. 33.2 g/dL (32.0-36.0); Mean Corpuscular Volume 80.8 fL (80.0-100.0); Monocytes # (auto) 0.4 10 ^3/uL (0-1.3); Monocytes % (auto) 4.7 % (0.0-12.0); Neutrophils # (auto) 7.7 10 ^3/uL (1.6-8.6); Nucleated Red Blood Cells % 0.1 %; Platelet Count (auto) 168 10^3/uL (140-450); Red Blood Cells 3.79 10^6/uL (4.5-5.90); Red Cell Distribution Width 15.5 % (11.8-14.3); White Blood Cell 8.9 10^3/uL (4.4-10.8)
[2020-07-25] MEDS: ACETAMINOPHEN 325 MG TAB PO PRN ×3 (09:31→23:28)
[2020-07-25 09:47] LABS: Albumin 2.3 g/dL (3.4-5.0); Calcium 8.8 mg/dL (8.5-10.1); Potassium 3.7 mmol/L (3.5-5.1)
[2020-07-25 09:51] LABS: BUN/Creatinine Ratio 39.3; Bilirubin, Total 0.4 mg/dL (0.2-1.0); Total Protein 6.5 g/dL (6.4-8.2)
[2020-07-25 11:21] VITALS: BP 105/68
[2020-07-25 12:53] VITALS: BP 105/68
[2020-07-25] MEDS ORDERED: Glucerna 1.2 Cal 1Liter BOTTLE GT SCH (15:46)
[2020-07-25 16:51] VITALS: BP 108/72
[2020-07-25] MEDS ORDERED: METF-929 PO (18:03)
[2020-07-25] MEDS: FAMOTIDINE (10MG/ML) 2ML VL IV SCH ×2 (19:30→22:00)
[2020-07-25] MEDS: ZINC SULFATE 220mg CAP or TAB PO SCH (19:31)
[2020-07-25] MEDS: MULTIPLE VITAMIN TAB PO SCH (19:31)
[2020-07-25] MEDS: ASCORBIC ACID 500 MG TAB PO SCH ×2 (19:31→22:00)
[2020-07-25] MEDS: ENOXAPARIN SOD 40 MG/0.4 ML SYRINGE SC SCH (19:33)
[2020-07-25] MEDS: AZITHROMYCIN 500MG/ 250ML 250 ML IV SCH (19:34)
[2020-07-25] MEDS: NutriHep RTU 240 mL Unflavored PO SCH (20:00)
[2020-07-25 22:26] VITALS: BP 104/65
[2020-07-25] MEDS ORDERED: PATIENTS OWN MEDICATION PEG PRN (22:45)
[2020-07-25] MEDS ORDERED: ZOLPIDEM TARTRATE 5 MG TAB GT PRN (23:00)
[2020-07-26] MEDS: MEROPENEM 1GM IVPB 100 ML IV SCH ×3 (00:30→17:10)
[2020-07-26 05:15] VITALS: BP 123/75
[2020-07-26 06:58] LABS: Basophils # (auto) 0 10 ^3/uL (0-0.2); Basophils % (auto) 0.3 % (0.0-2.0); Eosinophils # (auto) 0.1 10 ^3/uL (0-0.8); Hematocrit 31.9 % (41.0-53.0); Lymphocytes # (auto) 0.5 10 ^3/uL (0.4-5.4); Lymphocytes % (auto) 9.7 % (10.0-50.0); Mean Corpuscular Hemoglobin 27.4 pg (28.0-32.0); Mean Corpuscular Hgb Conc. 34.4 g/dL (32.0-36.0); Mean Corpuscular Volume 79.7 fL (80.0-100.0); Monocytes # (auto) 0.4 10 ^3/uL (0-1.3); Monocytes % (auto) 6.6 % (0.0-12.0); Neutrophils # (auto) 4.4 10 ^3/uL (1.6-8.6); Neutrophils % (auto) 81.4 % (37.0-80.0); Nucleated Red Blood Cells % 0.5 %; Platelet Count (auto) 170 10^3/uL (140-450); Red Blood Cells 4.01 10^6/uL (4.5-5.90); Red Cell Distribution Width 15.8 % (11.8-14.3); White Blood Cell 5.4 10^3/uL (4.4-10.8)
[2020-07-26] MEDS: NutriHep RTU 240 mL Unflavored PO SCH ×3 (07:00→14:00)
[2020-07-26 07:13] LABS: INR 1.05 (0.9-1.15)
[2020-07-26 07:19] LABS: Albumin 2.6 g/dL (3.4-5.0); Potassium 3.7 mmol/L (3.5-5.1)
[2020-07-26 07:22] LABS: BUN/Creatinine Ratio 26.5; Bilirubin, Total 0.4 mg/dL (0.2-1.0); Total Protein 7.5 g/dL (6.4-8.2)
[2020-07-26] MEDS: ACETAMINOPHEN 325 MG TAB PO PRN ×2 (08:45→20:30)
[2020-07-26 09:00] VITALS: BP 117/71
[2020-07-26] MEDS: FAMOTIDINE (10MG/ML) 2ML VL IV SCH (09:14)
[2020-07-26] MEDS: ZINC SULFATE 220mg CAP or TAB PO SCH (09:14)
[2020-07-26] MEDS: ENOXAPARIN SOD 40 MG/0.4 ML SYRINGE SC SCH (09:14)
[2020-07-26] MEDS: ASCORBIC ACID 500 MG TAB PO SCH ×2 (09:14→22:11)
[2020-07-26] MEDS: MULTIPLE VITAMIN TAB PO SCH (09:14)
[2020-07-26] MEDS: AZITHROMYCIN 500MG/ 250ML 250 ML IV SCH (10:28)
[2020-07-26 13:00] VITALS: BP 105/68
[2020-07-26] MEDS ORDERED: Glucerna 1.2 Cal 1Liter BOTTLE GT SCH (13:30)
[2020-07-26] MEDS ORDERED: DEXTROSE (50%) 50ML SYRG IV PRN (14:00)
[2020-07-26] MEDS: GABAPENTIN 300 MG CAP PEG SCH ×2 (14:50→22:11)
[2020-07-26 17:00] VITALS: BP 102/67
[2020-07-26] MEDS: metFORMIN HYDROCHLORIDE 500 MG TAB PEG SCH (17:41)
[2020-07-26] MEDS: ACCU-CHEK COMFORT CURVE STRIP VI SCH ×2 (17:41→22:11)
[2020-07-26 22:00] VITALS: BP 104/58
[2020-07-26] MEDS ORDERED: CRESTOR 40 MG PEG SCH (22:00)
[2020-07-26] MEDS ORDERED: LUNESTA 1 MG PEG SCH (22:00)
[2020-07-26] MEDS: AMITRIPTYLINE HCL 25 MG TAB PEG SCH (22:10)
[2020-07-26] MEDS: ZOLPIDEM TARTRATE 5 MG TAB PEG SCH (22:10)
[2020-07-26] MEDS: ATORVASTATIN 20 MG TAB PO SCH (22:11)
[2020-07-27] MEDS: MEROPENEM 1GM IVPB 100 ML IV SCH ×3 (00:49→17:05)
[2020-07-27 04:47] VITALS: BP 100/66
[2020-07-27] MEDS: GABAPENTIN 300 MG CAP PEG SCH ×3 (06:32→23:11)
[2020-07-27] MEDS: LEVOTHYROXINE SODIUM 50 MCG TAB PEG SCH (06:32)
[2020-07-27] MEDS: ACCU-CHEK COMFORT CURVE STRIP VI SCH ×4 (06:32→23:12)
[2020-07-27 07:00] LABS: Basophils # (auto) 0 10 ^3/uL (0-0.2); Basophils % (auto) 0.5 % (0.0-2.0); Eosinophils # (auto) 0.1 10 ^3/uL (0-0.8); Eosinophils % (auto) 3.3 % (0.0-7.0); Hematocrit 33.6 % (41.0-53.0); Hemoglobin 11.3 g/dL (13.5-17.5); Lymphocytes # (auto) 0.6 10 ^3/uL (0.4-5.4); Lymphocytes % (auto) 14.3 % (10.0-50.0); Mean Corpuscular Hgb Conc. 33.7 g/dL (32.0-36.0); Mean Corpuscular Volume 80.3 fL (80.0-100.0); Monocytes # (auto) 0.4 10 ^3/uL (0-1.3); Monocytes % (auto) 8.7 % (0.0-12.0); Neutrophils # (auto) 3.1 10 ^3/uL (1.6-8.6); Neutrophils % (auto) 73.2 % (37.0-80.0); Nucleated Red Blood Cells % 0.1 %; Platelet Count (auto) 200 10^3/uL (140-450); Red Blood Cells 4.18 10^6/uL (4.5-5.90); Red Cell Distribution Width 15.8 % (11.8-14.3); White Blood Cell 4.2 10^3/uL (4.4-10.8)
[2020-07-27 07:20] LABS: BUN/Creatinine Ratio 28.9; Calcium 9.8 mg/dL (8.5-10.1); Potassium 3.7 mmol/L (3.5-5.1)
[2020-07-27] MEDS: metFORMIN HYDROCHLORIDE 500 MG TAB PEG SCH ×2 (08:00→17:11)
[2020-07-27 09:00] VITALS: BP 101/65
[2020-07-27] MEDS: ASCORBIC ACID 500 MG TAB PO SCH ×2 (10:33→23:11)
[2020-07-27] MEDS: MULTIPLE VITAMIN TAB PO SCH (10:33)
[2020-07-27] MEDS: ZINC SULFATE 220mg CAP or TAB PO SCH (10:33)
[2020-07-27] MEDS: AZITHROMYCIN 500MG/ 250ML 250 ML IV SCH (10:33)
[2020-07-27] MEDS: PANTOPRAZOLE 40 MG/10 ML VIAL INJ IV SCH (10:34)
[2020-07-27] MEDS: ENOXAPARIN SOD 40 MG/0.4 ML SYRINGE SC SCH (10:34)
[2020-07-27 13:00] VITALS: BP 99/68
[2020-07-27] MEDS ORDERED: Glucerna 1.2 Cal 1Liter BOTTLE GT SCH (13:15)
[2020-07-27 17:00] VITALS: BP 99/66
[2020-07-27 22:00] VITALS: BP 95/61
[2020-07-27] MEDS: ZOLPIDEM TARTRATE 5 MG TAB PEG SCH (23:10)
[2020-07-27] MEDS: AMITRIPTYLINE HCL 25 MG TAB PEG SCH (23:10)
[2020-07-27] MEDS: ATORVASTATIN 20 MG TAB PO SCH (23:11)
[2020-07-28] MEDS ORDERED: KETOROLAC TROMETH 30 MG/ML 1ML VIAL IV ONE (01:15)
[2020-07-28] MEDS: MEROPENEM 1GM IVPB 100 ML IV SCH ×3 (01:35→17:42)
[2020-07-28 05:00] VITALS: BP 88/52
[2020-07-28 05:33] LABS: Basophils # (auto) 0 10 ^3/uL (0-0.2); Basophils % (auto) 0.4 % (0.0-2.0); Eosinophils # (auto) 0.1 10 ^3/uL (0-0.8); Lymphocytes # (auto) 0.5 10 ^3/uL (0.4-5.4); Monocytes # (auto) 0.4 10 ^3/uL (0-1.3); Neutrophils # (auto) 2.7 10 ^3/uL (1.6-8.6); Nucleated Red Blood Cells % 0.1 %; Platelet Count (auto) 194 10^3/uL (140-450)
[2020-07-28 05:42] LABS: Eosinophils % (auto) 2.8 % (0.0-7.0); Hematocrit 31.8 % (41.0-53.0); Hemoglobin 10.6 g/dL (13.5-17.5); Lymphocytes % (auto) 14.4 % (10.0-50.0); Mean Corpuscular Hemoglobin 26.8 pg (28.0-32.0); Mean Corpuscular Hgb Conc. 33.3 g/dL (32.0-36.0); Mean Corpuscular Volume 80.7 fL (80.0-100.0); Monocytes % (auto) 10.3 % (0.0-12.0); Neutrophils % (auto) 72.1 % (37.0-80.0); Red Blood Cells 3.94 10^6/uL (4.5-5.90); Red Cell Distribution Width 15.9 % (11.8-14.3); White Blood Cell 3.8 10^3/uL (4.4-10.8)
[2020-07-28 05:57] LABS: BUN/Creatinine Ratio 42.2; Calcium 9.3 mg/dL (8.5-10.1)
[2020-07-28] MEDS: GABAPENTIN 300 MG CAP PEG SCH ×3 (06:32→23:07)
[2020-07-28] MEDS: LEVOTHYROXINE SODIUM 50 MCG TAB PEG SCH (06:32)
[2020-07-28] MEDS: ACCU-CHEK COMFORT CURVE STRIP VI SCH ×4 (06:32→23:21)
[2020-07-28] MEDS: metFORMIN HYDROCHLORIDE 500 MG TAB PEG SCH ×2 (08:00→17:42)
[2020-07-28 08:28] VITALS: BP 92/61
[2020-07-28] MEDS: PANTOPRAZOLE 40 MG/10 ML VIAL INJ IV SCH (10:21)
[2020-07-28] MEDS: MULTIPLE VITAMIN TAB PO SCH (10:22)
[2020-07-28] MEDS: ENOXAPARIN SOD 40 MG/0.4 ML SYRINGE SC SCH (10:22)
[2020-07-28] MEDS: AZITHROMYCIN 500MG/ 250ML 250 ML IV SCH (10:22)
[2020-07-28] MEDS: ZINC SULFATE 220mg CAP or TAB PO SCH (10:22)
[2020-07-28] MEDS: ASCORBIC ACID 500 MG TAB PO SCH ×2 (10:22→23:03)
[2020-07-28 11:17] VITALS: BP 92/61
[2020-07-28 12:45] VITALS: BP 96/66
[2020-07-28 17:00] VITALS: BP 121/67
[2020-07-28] MEDS: ACETAMINOPHEN 325 MG TAB PO PRN (21:52)
[2020-07-28 22:25] VITALS: BP 105/66
[2020-07-28] MEDS: ATORVASTATIN 20 MG TAB PO SCH (23:03)
[2020-07-28] MEDS: AMITRIPTYLINE HCL 25 MG TAB PEG SCH (23:04)
[2020-07-28] MEDS: ZOLPIDEM TARTRATE 5 MG TAB PEG SCH (23:06)
[2020-07-29] MEDS: MEROPENEM 1GM IVPB 100 ML IV SCH ×2 (01:00→08:16)
[2020-07-29 05:16] VITALS: BP 130/75
[2020-07-29] MEDS: LEVOTHYROXINE SODIUM 50 MCG TAB PEG SCH (06:56)
[2020-07-29] MEDS: ACCU-CHEK COMFORT CURVE STRIP VI SCH ×4 (06:56→21:28)
[2020-07-29] MEDS: GABAPENTIN 300 MG CAP PEG SCH ×3 (06:56→21:27)
[2020-07-29] MEDS: metFORMIN HYDROCHLORIDE 500 MG TAB PEG SCH ×2 (08:00→17:46)
[2020-07-29 09:00] VITALS: BP 86/58
[2020-07-29] MEDS: MULTIPLE VITAMIN TAB PO SCH (09:05)
[2020-07-29] MEDS: PANTOPRAZOLE 40 MG/10 ML VIAL INJ IV SCH (09:05)
[2020-07-29] MEDS: ZINC SULFATE 220mg CAP or TAB PO SCH (09:05)
[2020-07-29] MEDS: ASCORBIC ACID 500 MG TAB PO SCH ×2 (09:06→21:28)
[2020-07-29] MEDS: ENOXAPARIN SOD 40 MG/0.4 ML SYRINGE SC SCH (09:06)
[2020-07-29 13:00] VITALS: BP 88/55
[2020-07-29] MEDS ORDERED: LEVO750T8 PO (14:06)
[2020-07-29] MEDS ORDERED: SODIUM CHLORIDE 0.9% 1,000 ML IV ONE (14:15)
[2020-07-29 16:44] VITALS: BP 93/62
[2020-07-29] MEDS: SODIUM CHLORIDE 0.9% 1,000 ML IV SCH (17:47)
[2020-07-29] MEDS ORDERED: Glucerna 1.2 Cal 1Liter BOTTLE PEG SCH (18:00)
[2020-07-29] MEDS: Glucerna 1.2 Cal 1Liter BOTTLE GT SCH (18:21)
[2020-07-29] MEDS: ZOLPIDEM TARTRATE 5 MG TAB PEG SCH (21:27)
[2020-07-29] MEDS: AMITRIPTYLINE HCL 25 MG TAB PEG SCH (21:27)
[2020-07-29] MEDS: ATORVASTATIN 20 MG TAB PO SCH (21:27)
[2020-07-29 22:00] VITALS: BP 96/61
[2020-07-30] MEDS: SODIUM CHLORIDE 0.9% 1,000 ML IV SCH ×2 (01:37→10:38)
[2020-07-30] MEDS: Glucerna 1.2 Cal 1Liter BOTTLE GT SCH ×5 (01:37→12:15)
[2020-07-30 05:00] VITALS: BP 102/65
[2020-07-30 05:28] LABS: Basophils # (auto) 0 10 ^3/uL (0-0.2); Basophils % (auto) 0.3 % (0.0-2.0); Eosinophils # (auto) 0.2 10 ^3/uL (0-0.8); Eosinophils % (auto) 4.6 % (0.0-7.0); Hematocrit 30.1 % (41.0-53.0); Hemoglobin 10.3 g/dL (13.5-17.5); Lymphocytes # (auto) 0.6 10 ^3/uL (0.4-5.4); Lymphocytes % (auto) 15.9 % (10.0-50.0); Mean Corpuscular Hemoglobin 27.6 pg (28.0-32.0); Mean Corpuscular Hgb Conc. 34.3 g/dL (32.0-36.0); Mean Corpuscular Volume 80.4 fL (80.0-100.0); Monocytes # (auto) 0.4 10 ^3/uL (0-1.3); Monocytes % (auto) 9.7 % (0.0-12.0); Neutrophils # (auto) 2.7 10 ^3/uL (1.6-8.6); Neutrophils % (auto) 69.5 % (37.0-80.0); Platelet Count (auto) 188 10^3/uL (140-450); Red Blood Cells 3.75 10^6/uL (4.5-5.90); Red Cell Distribution Width 15.6 % (11.8-14.3); White Blood Cell 3.9 10^3/uL (4.4-10.8)
[2020-07-30 05:51] LABS: Potassium 3.7 mmol/L (3.5-5.1)
[2020-07-30 05:53] LABS: Calcium 8.8 mg/dL (8.5-10.1); Magnesium 2.4 mg/dL (1.6-2.6)
[2020-07-30] MEDS: LEVOTHYROXINE SODIUM 50 MCG TAB PEG SCH (07:15)
[2020-07-30] MEDS: GABAPENTIN 300 MG CAP PEG SCH ×2 (07:15→15:03)
[2020-07-30] MEDS: ACCU-CHEK COMFORT CURVE STRIP VI SCH ×2 (07:15→11:42)
[2020-07-30] MEDS: metFORMIN HYDROCHLORIDE 500 MG TAB PEG SCH (07:40)
[2020-07-30 08:38] VITALS: BP 92/52
[2020-07-30] MEDS ORDERED: levoFLOXacin 750MG 150 ML IV SCH (10:00)
[2020-07-30] MEDS: ZINC SULFATE 220mg CAP or TAB PO SCH (10:27)
[2020-07-30] MEDS: ASCORBIC ACID 500 MG TAB PO SCH (10:28)
[2020-07-30] MEDS: MULTIPLE VITAMIN TAB PO SCH (10:28)
[2020-07-30] MEDS: ENOXAPARIN SOD 40 MG/0.4 ML SYRINGE SC SCH (10:38)
[2020-07-30] MEDS: PANTOPRAZOLE 40 MG/10 ML VIAL INJ IV SCH (10:39)
[2020-07-30 13:00] VITALS: BP 96/58
== END 2020-07-30 15:25 | disposition home health service (06) | DRG 193 ==
LOC: ER 22:23 → EDBD 22:23 → TELE 07-25 08:03 → TELE-WESTW 07-25 10:31
PROVIDERS: ADMIT Nurse Practitioner Family; ATTEND Internal Medicine
DX: J18.1 Lobar pneumonia, unspecified organism (principal); J96.21 Acute and chronic respiratory failure with hypoxia; E44.0 Moderate protein-calorie malnutrition; J44.0 Chronic obstructive pulmonary disease with (acute) lower respiratory infection; J90 Pleural effusion, not elsewhere classified; J44.1 Chronic obstructive pulmonary disease with (acute) exacerbation; Z68.1 Body mass index [BMI] 19.9 or less, adult; I10 Essential (primary) hypertension; E78.5 Hyperlipidemia, unspecified; E03.9 Hypothyroidism, unspecified; E11.40 Type 2 diabetes mellitus with diabetic neuropathy, unspecified; E11.649 Type 2 diabetes mellitus with hypoglycemia without coma; Z20.822 Contact with and (suspected) exposure to COVID-19; K74.60 Unspecified cirrhosis of liver; N40.0 Benign prostatic hyperplasia without lower urinary tract symptoms; Z79.51 Long term (current) use of inhaled steroids; Z79.899 Other long term (current) drug therapy; Z93.1 Gastrostomy status; Z92.3 Personal history of irradiation; Z92.21 Personal history of antineoplastic chemotherapy; Z87.01 Personal history of pneumonia (recurrent); Z86.73 Personal history of transient ischemic attack (TIA), and cerebral infarction without residual deficits; Z80.3 Family history of malignant neoplasm of breast; Z80.0 Family history of malignant neoplasm of digestive organs
CPT/HCPCS: 36415; 71045; 73060; 80048; 80053; 81001; 82962; 83036; 83605; 83735; 83880; 84443; 84484; 85025; 85610; 87040; 87070; 87081; 87205; 87426; 93005; 93971; 96365; 96366; 96367; C9113; G0378; J1885; J1956; J2185; J2543; J3490

== ENCOUNTER 2020-11-27 19:58 | Inpatient (IN) | payer MEDICARE, OTHER ==
[~2020-11-27] VITALS: Ht 182.9 cm; Wt 59.9 kg
[~2020-11-27 19:58] MED LIST changes: +AMIT25TA12 PO; -AMIT25TA9 PO; +LEVO750T8 PO; +METF-929 PO
[2020-11-27 21:59] LABS: Alanine Aminotransferase 30 U/L (16-61); Albumin 2.5 g/dL (3.4-5.0); Anion Gap 8 (5-15); Aspartate Aminotransferase 26 U/L (15-37); Basophils # (auto) 0 10 ^3/uL (0-0.2); Basophils % (auto) 0.2 % (0.0-2.0); Blood Urea Nitrogen 16 mg/dL (7-18); Calcium 9.3 mg/dL (8.5-10.1); Carbon Dioxide 35 mmol/L (21-32); Chloride 94 mmol/L (98-107); Eosinophils # (auto) 0 10 ^3/uL (0-0.8); GFR African American 216 mL/min; GFR Non-African American 178 mL/min; Glucose 189 mg/dL (74-106); Lymphocytes # (auto) 0.4 10 ^3/uL (0.4-5.4); Magnesium 2.4 mg/dL (1.6-2.6); Monocytes # (auto) 0.4 10 ^3/uL (0-1.3); Monocytes % (auto) 6.1 % (0.0-12.0); Potassium 4.7 mmol/L (3.5-5.1); Red Blood Cells 4.55 10^6/uL (4.5-5.90); Red Cell Distribution Width 16.7 % (11.8-14.3); Sodium 137 mmol/L (136-145)
[2020-11-27 22:00] LABS: Eosinophils % (auto) 0.7 % (0.0-7.0); Lymphocytes % (auto) 5.3 % (10.0-50.0); Mean Corpuscular Hemoglobin 26.3 pg (28.0-32.0); Mean Corpuscular Hgb Conc. 32.3 g/dL (32.0-36.0); Mean Corpuscular Volume 81.4 fL (80.0-100.0); Neutrophils % (auto) 87.7 % (37.0-80.0); Nucleated Red Blood Cells % 0.1 %; White Blood Cell 6.8 10^3/uL (4.4-10.8)
[2020-11-27 22:04] LABS: Alkaline Phosphatase 75 U/L (45-117); Bilirubin, Total 0.4 mg/dL (0.2-1.0); Total Protein 7.6 g/dL (6.4-8.2)
[2020-11-27] MEDS ORDERED: methylPREDNISolone SOD SUCC 125 MG/2 ML VL IV ONE (23:45)
[2020-11-27] MEDS ORDERED: cefTRIAXone 1GM/50ML D5W 50 ML IV ONE (23:45)
[2020-11-28] MEDS ORDERED: ACETAMINOPHEN 325 MG TAB PO PRN (05:15)
[2020-11-28] MEDS ORDERED: NITROGLYCERIN 0.4 MG SL TAB SL PRN (05:15)
[2020-11-28] MEDS ORDERED: ONDANSETRON HCL 4 MG/2 ML VIAL IV PRN (05:15)
[2020-11-28] MEDS ORDERED: DOCUSATE SOD 100 MG CAP PO PRN (05:15)
[2020-11-28] MEDS ORDERED: MORPHINE SULFATE INJECTION 2 MG/ML SYRG IV PRN (05:15)
[2020-11-28] MEDS ORDERED: ALBUMIN 25% 50 ML IV ONE (05:45)
[2020-11-28] MEDS: methylPREDNISolone SOD SUCC 40 MG/ML VL IV SCH ×3 (06:00→21:37)
[2020-11-28] MEDS ORDERED: ALBUTEROL SULF HFA 90MCG INH 200DOSE IN SCH (06:00)
[2020-11-28] MEDS: SODIUM CHLOR 0.9% PF (SALINE LOCK) 10ML VIAL/SYR IV SCH ×3 (06:00→21:36)
[2020-11-28] MEDS ORDERED: LEVOTHYROXINE SODIUM 50 MCG TAB PO SCH (07:00)
[2020-11-28 07:13] LABS: Basophils # (auto) 0 10 ^3/uL (0-0.2); Basophils % (auto) 0.1 % (0.0-2.0); Eosinophils # (auto) 0 10 ^3/uL (0-0.8); Mean Corpuscular Volume 81.6 fL (80.0-100.0); Monocytes # (auto) 0 10 ^3/uL (0-1.3); Neutrophils # (auto) 4.2 10 ^3/uL (1.6-8.6); White Blood Cell 4.6 10^3/uL (4.4-10.8)
[2020-11-28 07:14] LABS: Eosinophils % (auto) 0.1 % (0.0-7.0); Hematocrit 38.3 % (41.0-53.0); Hemoglobin 12.1 g/dL (13.5-17.5); Lymphocytes # (auto) 0.3 10 ^3/uL (0.4-5.4); Lymphocytes % (auto) 7.4 % (10.0-50.0); Mean Corpuscular Hemoglobin 25.8 pg (28.0-32.0); Mean Corpuscular Hgb Conc. 31.6 g/dL (32.0-36.0); Monocytes % (auto) 0.7 % (0.0-12.0); Neutrophils % (auto) 91.7 % (37.0-80.0); Nucleated Red Blood Cells % 0.1 %; Red Blood Cells 4.69 10^6/uL (4.5-5.90); Red Cell Distribution Width 16.7 % (11.8-14.3)
[2020-11-28 07:32] LABS: Albumin 2.6 g/dL (3.4-5.0); BUN/Creatinine Ratio 23.3; Calcium 9.9 mg/dL (8.5-10.1); Potassium 4.8 mmol/L (3.5-5.1)
[2020-11-28 07:35] LABS: Bilirubin, Total 0.3 mg/dL (0.2-1.0)
[2020-11-28 07:45] VITALS: BP 107/68
[2020-11-28] MEDS ORDERED: ALBUTEROL SULF HFA 90MCG INH 200DOSE IN PRN (08:15)
[2020-11-28 09:55] VITALS: BP 123/76
[2020-11-28] MEDS ORDERED: cefTRIAXone 1GM/50ML D5W 50 ML IV ONE (11:30)
[2020-11-28] MEDS: ASCORBIC ACID 500 MG TAB GT SCH (11:37)
[2020-11-28] MEDS: PANTOPRAZOLE 40 MG/10 ML VIAL INJ IV SCH (11:37)
[2020-11-28] MEDS: MULTIPLE VITAMIN TAB GT SCH (11:38)
[2020-11-28] MEDS: ASPirin 81 mg TAB GT SCH (11:38)
[2020-11-28] MEDS: ZINC SULFATE 220mg CAP or TAB GT SCH (11:38)
[2020-11-28] MEDS ORDERED: AZITHROMYCIN 500MG/ 250ML 250 ML IV ONE (12:30)
[2020-11-28] MEDS ORDERED: ENOXAPARIN SOD 30 MG/0.3 ML SYRINGE SC ONE (12:30)
[2020-11-28 12:37] VITALS: BP 114/74
[2020-11-28] MEDS ORDERED: IOHEXOL 350 MG/ML 100ML IJ ONE ×2 (12:54→12:59)
[2020-11-28 16:32] VITALS: BP 121/75
[2020-11-28] MEDS ORDERED: Glucerna 1.2 Cal 1Liter BOTTLE GT SCH ×2 (16:45→18:30)
[2020-11-28] MEDS ORDERED: DOCUSATE ORAL LIQUID 100 MG/10 ML UD GT PRN (17:00)
[2020-11-28] MEDS ORDERED: LEVALBUTEROL HCL 1.25 MG/3 ML NEB NEB SCH (18:45)
[2020-11-28] MEDS ORDERED: ALBUTEROL SULF 2.5 MG/0.5ML(0.5%) NEB SOLN NEB ONE (18:45)
[2020-11-28] MEDS: LEVALBUTEROL HCL 1.25 MG/3 ML NEB NEB SCH (18:56)
[2020-11-28] MEDS: IPRATROPIUM BROM 0.5 MG/2.5ML INH SOL NEB SCH (18:57)
[2020-11-28] MEDS ORDERED: VANCOMYCIN PER PHARMACY 0 MG IV SCH (19:30)
[2020-11-28] MEDS: MORPHINE SULFATE 4 MG/ML SYR/VIAL IV PRN (19:50)
[2020-11-28] MEDS ORDERED: VANCOMYCIN 1GM/250ML 250 ML IV ONE (20:00)
[2020-11-28 20:39] LABS: INR 1.07 (0.9-1.15)
[2020-11-28] MEDS: ATORVASTATIN 20 MG TAB GT SCH (21:36)
[2020-11-28] MEDS: GABAPENTIN 300 MG CAP PO SCH (21:37)
[2020-11-28] MEDS: AMITRIPTYLINE HCL 25 MG TAB PO SCH (21:37)
[2020-11-28] MEDS: ESZOPICLONE 1 MG PO SCH (21:57)
[2020-11-28 22:01] VITALS: BP 103/64
[2020-11-29 04:38] LABS: Basophils # (auto) 0 10 ^3/uL (0-0.2); Basophils % (auto) 0.1 % (0.0-2.0); Eosinophils # (auto) 0 10 ^3/uL (0-0.8); Monocytes # (auto) 0.2 10 ^3/uL (0-1.3)
[2020-11-29 04:41] LABS: Hematocrit 37.1 % (41.0-53.0); Lymphocytes # (auto) 0.3 10 ^3/uL (0.4-5.4); Lymphocytes % (auto) 6.5 % (10.0-50.0); Mean Corpuscular Hemoglobin 26.2 pg (28.0-32.0); Mean Corpuscular Hgb Conc. 32.4 g/dL (32.0-36.0); Monocytes % (auto) 3.2 % (0.0-12.0); Neutrophils # (auto) 4.8 10 ^3/uL (1.6-8.6); Neutrophils % (auto) 90.2 % (37.0-80.0); Red Blood Cells 4.58 10^6/uL (4.5-5.90); Red Cell Distribution Width 16.7 % (11.8-14.3); White Blood Cell 5.3 10^3/uL (4.4-10.8)
[2020-11-29 04:59] LABS: Potassium 4.8 mmol/L (3.5-5.1)
[2020-11-29 05:00] VITALS: BP 106/68
[2020-11-29 05:04] LABS: Albumin 2.8 g/dL (3.4-5.0); BUN/Creatinine Ratio 40.8; Calcium 10.2 mg/dL (8.5-10.1)
[2020-11-29 05:11] LABS: Bilirubin, Total 0.2 mg/dL (0.2-1.0); Total Protein 7.8 g/dL (6.4-8.2)
[2020-11-29] MEDS: SODIUM CHLOR 0.9% PF (SALINE LOCK) 10ML VIAL/SYR IV SCH ×3 (06:18→21:55)
[2020-11-29] MEDS: methylPREDNISolone SOD SUCC 40 MG/ML VL IV SCH ×3 (06:21→21:59)
[2020-11-29] MEDS: GABAPENTIN 300 MG CAP PO SCH ×3 (06:21→23:53)
[2020-11-29] MEDS: LEVALBUTEROL HCL 1.25 MG/3 ML NEB NEB SCH ×3 (06:57→18:15)
[2020-11-29] MEDS: IPRATROPIUM BROM 0.5 MG/2.5ML INH SOL NEB SCH ×3 (06:57→18:15)
[2020-11-29] MEDS ORDERED: VANCOMYCIN 1GM/250ML 250 ML IV ONE (08:45)
[2020-11-29 09:00] VITALS: BP 102/65
[2020-11-29] MEDS ORDERED: ENOXAPARIN SOD 30 MG/0.3 ML SYRINGE SC SCH (10:00)
[2020-11-29] MEDS: MORPHINE SULFATE 4 MG/ML SYR/VIAL IV PRN ×2 (10:32→19:58)
[2020-11-29] MEDS: PANTOPRAZOLE 40 MG/10 ML VIAL INJ IV SCH (10:33)
[2020-11-29] MEDS: cefTRIAXone 1GM/50ML D5W 50 ML IV SCH (11:29)
[2020-11-29] MEDS ORDERED: MORPHINE SULFATE INJECTION 2 MG/ML SYRG IM ONE (12:00)
[2020-11-29] MEDS: AZITHROMYCIN 500MG/ 250ML 250 ML IV SCH (12:22)
[2020-11-29] MEDS ORDERED: MORPHINE SULFATE INJECTION 2 MG/ML SYRG IV ONE (12:30)
[2020-11-29] MEDS ORDERED: GASTROGRAFIN 30 ML SOL ONE (12:42)
[2020-11-29 13:00] VITALS: BP 103/77
[2020-11-29 17:00] VITALS: BP 98/63
[2020-11-29] MEDS: ZINC SULFATE 220mg CAP or TAB GT SCH (17:30)
[2020-11-29] MEDS: ASPirin 81 mg TAB GT SCH (17:30)
[2020-11-29] MEDS: ASCORBIC ACID 500 MG TAB GT SCH (17:30)
[2020-11-29] MEDS: MULTIPLE VITAMIN TAB GT SCH (17:30)
[2020-11-29] MEDS: ATORVASTATIN 20 MG TAB GT SCH (21:55)
[2020-11-29] MEDS: AMITRIPTYLINE HCL 25 MG TAB PO SCH (21:56)
[2020-11-29] MEDS: ESZOPICLONE 1 MG PO SCH (21:56)
[2020-11-29 22:49] VITALS: BP 100/68
[2020-11-29] MEDS: VANCOMYCIN 1GM/250ML 250 ML IV SCH (23:54)
[2020-11-30 05:00] VITALS: BP 106/67
[2020-11-30] MEDS: methylPREDNISolone SOD SUCC 40 MG/ML VL IV SCH ×3 (05:45→22:51)
[2020-11-30] MEDS: GABAPENTIN 300 MG CAP PO SCH ×3 (05:45→22:51)
[2020-11-30] MEDS: SODIUM CHLOR 0.9% PF (SALINE LOCK) 10ML VIAL/SYR IV SCH ×3 (05:45→22:52)
[2020-11-30] MEDS: IPRATROPIUM BROM 0.5 MG/2.5ML INH SOL NEB SCH ×3 (07:30→19:09)
[2020-11-30] MEDS: LEVALBUTEROL HCL 1.25 MG/3 ML NEB NEB SCH ×3 (07:30→19:09)
[2020-11-30 09:00] VITALS: BP 106/61
[2020-11-30] MEDS: ZINC SULFATE 220mg CAP or TAB GT SCH (10:00)
[2020-11-30] MEDS: cefTRIAXone 1GM/50ML D5W 50 ML IV SCH (10:47)
[2020-11-30] MEDS: ASPirin 81 mg TAB GT SCH (10:47)
[2020-11-30] MEDS: MULTIPLE VITAMIN TAB GT SCH (10:47)
[2020-11-30] MEDS: ASCORBIC ACID 500 MG TAB GT SCH (10:48)
[2020-11-30] MEDS: PANTOPRAZOLE 40 MG/10 ML VIAL INJ IV SCH (10:48)
[2020-11-30] MEDS: AZITHROMYCIN 500MG/ 250ML 250 ML IV SCH (10:49)
[2020-11-30] MEDS: ENOXAPARIN SOD 30 MG/0.3 ML SYRINGE SC SCH (10:49)
[2020-11-30 11:21] LABS: Basophils # (auto) 0 10 ^3/uL (0-0.2); Eosinophils # (auto) 0 10 ^3/uL (0-0.8); Lymphocytes # (auto) 0.5 10 ^3/uL (0.4-5.4); Monocytes # (auto) 0.2 10 ^3/uL (0-1.3); White Blood Cell 8.7 10^3/uL (4.4-10.8)
[2020-11-30 11:22] LABS: Basophils % (auto) 0.2 % (0.0-2.0); Hematocrit 40.3 % (41.0-53.0); Lymphocytes % (auto) 5.6 % (10.0-50.0); Mean Corpuscular Hemoglobin 26.6 pg (28.0-32.0); Mean Corpuscular Hgb Conc. 32.3 g/dL (32.0-36.0); Mean Corpuscular Volume 82.3 fL (80.0-100.0); Monocytes % (auto) 2.2 % (0.0-12.0); Red Cell Distribution Width 17.3 % (11.8-14.3)
[2020-11-30] MEDS: VANCOMYCIN 1GM/250ML 250 ML IV SCH ×2 (12:11→22:51)
[2020-11-30 13:00] VITALS: BP 143/50
[2020-11-30 17:00] VITALS: BP 104/60
[2020-11-30 21:54] VITALS: BP 97/59
[2020-11-30] MEDS: AMITRIPTYLINE HCL 25 MG TAB PO SCH (22:51)
[2020-11-30] MEDS: ATORVASTATIN 20 MG TAB GT SCH (22:52)
[2020-11-30] MEDS: ESZOPICLONE 1 MG PO SCH (22:53)
[2020-12-01 05:09] VITALS: BP 103/63
[2020-12-01] MEDS: methylPREDNISolone SOD SUCC 40 MG/ML VL IV SCH ×3 (05:49→22:00)
[2020-12-01] MEDS: SODIUM CHLOR 0.9% PF (SALINE LOCK) 10ML VIAL/SYR IV SCH ×3 (05:50→22:01)
[2020-12-01] MEDS: GABAPENTIN 300 MG CAP PO SCH ×3 (05:50→22:01)
[2020-12-01] MEDS: HYDROcodone-ACET 5/325MG TAB PO PRN ×2 (05:51→18:51)
[2020-12-01] MEDS: LEVALBUTEROL HCL 1.25 MG/3 ML NEB NEB SCH ×3 (06:12→18:38)
[2020-12-01] MEDS: IPRATROPIUM BROM 0.5 MG/2.5ML INH SOL NEB SCH ×3 (06:12→18:38)
[2020-12-01 08:00] VITALS: BP 118/72
[2020-12-01] MEDS: MORPHINE SULFATE 4 MG/ML SYR/VIAL IV PRN (08:00)
[2020-12-01] MEDS: VANCOMYCIN 1GM/250ML 250 ML IV SCH ×2 (08:01→18:49)
[2020-12-01] MEDS: ASPirin 81 mg TAB GT SCH (09:25)
[2020-12-01] MEDS: ZINC SULFATE 220mg CAP or TAB GT SCH (09:25)
[2020-12-01] MEDS: cefTRIAXone 1GM/50ML D5W 50 ML IV SCH (09:25)
[2020-12-01] MEDS: ENOXAPARIN SOD 30 MG/0.3 ML SYRINGE SC SCH (09:26)
[2020-12-01] MEDS: PANTOPRAZOLE 40 MG/10 ML VIAL INJ IV SCH (09:26)
[2020-12-01] MEDS: ASCORBIC ACID 500 MG TAB GT SCH (09:26)
[2020-12-01] MEDS: MULTIPLE VITAMIN TAB GT SCH (09:26)
[2020-12-01] MEDS: AZITHROMYCIN 500MG/ 250ML 250 ML IV SCH (10:58)
[2020-12-01 12:00] VITALS: BP 93/53
[2020-12-01 16:27] VITALS: BP 93/53
[2020-12-01 16:50] VITALS: BP 102/65
[2020-12-01 17:27] LABS: Basophils # (auto) 0 10 ^3/uL (0-0.2); Eosinophils # (auto) 0 10 ^3/uL (0-0.8); Hematocrit 35.2 % (41.0-53.0); Hemoglobin 11.4 g/dL (13.5-17.5); Lymphocytes # (auto) 0.3 10 ^3/uL (0.4-5.4); Lymphocytes % (auto) 5.4 % (10.0-50.0); Mean Corpuscular Hemoglobin 26.1 pg (28.0-32.0); Mean Corpuscular Hgb Conc. 32.2 g/dL (32.0-36.0); Mean Corpuscular Volume 81.1 fL (80.0-100.0); Monocytes # (auto) 0.2 10 ^3/uL (0-1.3); Monocytes % (auto) 4.5 % (0.0-12.0); Neutrophils # (auto) 4.8 10 ^3/uL (1.6-8.6); Neutrophils % (auto) 90.1 % (37.0-80.0); Red Blood Cells 4.34 10^6/uL (4.5-5.90); Red Cell Distribution Width 16.8 % (11.8-14.3); White Blood Cell 5.4 10^3/uL (4.4-10.8)
[2020-12-01 22:00] VITALS: BP 102/63
[2020-12-01] MEDS: AMITRIPTYLINE HCL 25 MG TAB PO SCH (22:01)
[2020-12-01] MEDS: ATORVASTATIN 20 MG TAB GT SCH (22:01)
[2020-12-01] MEDS: ESZOPICLONE 1 MG PO SCH (22:02)
[2020-12-02] MEDS: HYDROcodone-ACET 5/325MG TAB PO PRN (01:31)
[2020-12-02] MEDS: VANCOMYCIN 1GM/250ML 250 ML IV SCH ×3 (04:27→23:51)
[2020-12-02 05:00] VITALS: BP 96/64
[2020-12-02] MEDS: IPRATROPIUM BROM 0.5 MG/2.5ML INH SOL NEB SCH ×3 (06:22→18:00)
[2020-12-02] MEDS: LEVALBUTEROL HCL 1.25 MG/3 ML NEB NEB SCH ×3 (06:22→18:00)
[2020-12-02] MEDS: SODIUM CHLOR 0.9% PF (SALINE LOCK) 10ML VIAL/SYR IV SCH ×3 (06:26→21:53)
[2020-12-02] MEDS: methylPREDNISolone SOD SUCC 40 MG/ML VL IV SCH ×3 (06:26→21:54)
[2020-12-02] MEDS: GABAPENTIN 300 MG CAP PO SCH ×3 (06:26→21:55)
[2020-12-02 09:00] VITALS: BP 116/65
[2020-12-02] MEDS: cefTRIAXone 1GM/50ML D5W 50 ML IV SCH (09:28)
[2020-12-02] MEDS: ZINC SULFATE 220mg CAP or TAB GT SCH (09:31)
[2020-12-02] MEDS: ASCORBIC ACID 500 MG TAB GT SCH (09:31)
[2020-12-02] MEDS: ASPirin 81 mg TAB GT SCH (09:31)
[2020-12-02] MEDS: MULTIPLE VITAMIN TAB GT SCH (09:31)
[2020-12-02] MEDS: ENOXAPARIN SOD 30 MG/0.3 ML SYRINGE SC SCH (09:32)
[2020-12-02] MEDS: PANTOPRAZOLE 40 MG/10 ML VIAL INJ IV SCH (09:32)
[2020-12-02] MEDS: MORPHINE SULFATE 4 MG/ML SYR/VIAL IV PRN (09:32)
[2020-12-02] MEDS: AZITHROMYCIN 500MG/ 250ML 250 ML IV SCH (09:33)
[2020-12-02 13:00] VITALS: BP 100/60
[2020-12-02 16:33] VITALS: BP 95/55
[2020-12-02] MEDS: ATORVASTATIN 20 MG TAB GT SCH (21:53)
[2020-12-02] MEDS: ESZOPICLONE 1 MG PO SCH (21:54)
[2020-12-02] MEDS: AMITRIPTYLINE HCL 25 MG TAB PO SCH (21:55)
[2020-12-02 22:02] VITALS: BP 97/63
[2020-12-03] MEDS: HYDROcodone-ACET 5/325MG TAB PO PRN (02:12)
[2020-12-03] MEDS: MORPHINE SULFATE 4 MG/ML SYR/VIAL IV PRN (03:30)
[2020-12-03 05:00] VITALS: BP 110/70
[2020-12-03] MEDS: LEVALBUTEROL HCL 1.25 MG/3 ML NEB NEB SCH ×2 (06:44→12:51)
[2020-12-03] MEDS: IPRATROPIUM BROM 0.5 MG/2.5ML INH SOL NEB SCH ×2 (06:44→12:51)
[2020-12-03] MEDS: GABAPENTIN 300 MG CAP PO SCH (06:45)
[2020-12-03] MEDS: SODIUM CHLOR 0.9% PF (SALINE LOCK) 10ML VIAL/SYR IV SCH (06:45)
[2020-12-03] MEDS: methylPREDNISolone SOD SUCC 40 MG/ML VL IV SCH (06:45)
[2020-12-03 09:00] VITALS: BP 94/59
[2020-12-03] MEDS: cefTRIAXone 1GM/50ML D5W 50 ML IV SCH (09:26)
[2020-12-03] MEDS: ENOXAPARIN SOD 30 MG/0.3 ML SYRINGE SC SCH (09:31)
[2020-12-03] MEDS: PANTOPRAZOLE 40 MG/10 ML VIAL INJ IV SCH (09:31)
[2020-12-03] MEDS: AZITHROMYCIN 500MG/ 250ML 250 ML IV SCH (09:31)
[2020-12-03] MEDS: ASCORBIC ACID 500 MG TAB GT SCH (09:31)
[2020-12-03] MEDS: ZINC SULFATE 220mg CAP or TAB GT SCH (09:31)
[2020-12-03] MEDS: MULTIPLE VITAMIN TAB GT SCH (09:31)
[2020-12-03] MEDS: ASPirin 81 mg TAB GT SCH (09:31)
[2020-12-03] MEDS ORDERED: LINEZOLID 600MG TABLET PO SCH (10:00)
[2020-12-03 13:00] VITALS: BP 107/71
[2020-12-03] MEDS ORDERED: LINEZOLID 600MG TABLET GT SCH (22:00)
== END 2020-12-03 12:55 | disposition home or self-care (01) | DRG 871 ==
LOC: EDUNIT# 19:58 → EDBD 19:58 → ER 19:59 → TELE 11-28 05:38 → TELE-CENTR 11-28 09:56
PROVIDERS: ADMIT Nurse Practitioner Family; ATTEND Family Medicine
PROC: 0D20XUZ Change Feeding Device in Upper Intestinal Tract, External Approach (ICD-10-PCS; principal; 2020-11-29)
DX: A41.02 Sepsis due to Methicillin resistant Staphylococcus aureus (principal); J18.9 Pneumonia, unspecified organism; E43 Unspecified severe protein-calorie malnutrition; R65.21 Severe sepsis with septic shock; J90 Pleural effusion, not elsewhere classified; J44.1 Chronic obstructive pulmonary disease with (acute) exacerbation; J44.0 Chronic obstructive pulmonary disease with (acute) lower respiratory infection; K94.23 Gastrostomy malfunction; Z68.1 Body mass index [BMI] 19.9 or less, adult; I10 Essential (primary) hypertension; J84.10 Pulmonary fibrosis, unspecified; E05.90 Thyrotoxicosis, unspecified without thyrotoxic crisis or storm; Z20.822 Contact with and (suspected) exposure to COVID-19; E11.40 Type 2 diabetes mellitus with diabetic neuropathy, unspecified; E11.65 Type 2 diabetes mellitus with hyperglycemia; E78.00 Pure hypercholesterolemia, unspecified; F32.A Depression, unspecified; R13.10 Dysphagia, unspecified; D64.9 Anemia, unspecified; N40.0 Benign prostatic hyperplasia without lower urinary tract symptoms; Z80.3 Family history of malignant neoplasm of breast; Z87.891 Personal history of nicotine dependence; Z85.819 Personal history of malignant neoplasm of unspecified site of lip, oral cavity, and pharynx; Z86.73 Personal history of transient ischemic attack (TIA), and cerebral infarction without residual deficits; Z92.21 Personal history of antineoplastic chemotherapy; Z92.3 Personal history of irradiation; Z80.0 Family history of malignant neoplasm of digestive organs
CPT/HCPCS: 36415; 71045; 71275; 74018; 76536; 80053; 80202; 82565; 82962; 83036; 83605; 83735; 83880; 84443; 84484; 85025; 85610; 87040; 87077; 87147; 87186; 87426; 93306; 94640; 96365; 96367; 96375; C9113; G0378; J0696

== ENCOUNTER 2021-03-14 21:50 | Inpatient (IN) | payer MEDICARE, OTHER ==
[~2021-03-14] VITALS: Ht 175.3 cm; Wt 58.0 kg
[~2021-03-14 21:50] MED LIST changes: -LEVO750T8 PO
[2021-03-14 23:39] LABS: Basophils # (auto) 0 10 ^3/uL (0-0.2); Basophils % (auto) 0.4 % (0.0-2.0); Eosinophils # (auto) 0.1 10 ^3/uL (0-0.8); Hematocrit 34.2 % (41.0-53.0); Lymphocytes # (auto) 0.5 10 ^3/uL (0.4-5.4); Lymphocytes % (auto) 7.7 % (10.0-50.0); Mean Corpuscular Hemoglobin 27.4 pg (28.0-32.0); Mean Corpuscular Hgb Conc. 32.1 g/dL (32.0-36.0); Mean Corpuscular Volume 85.4 fL (80.0-100.0); Monocytes # (auto) 0.4 10 ^3/uL (0-1.3); Monocytes % (auto) 6.2 % (0.0-12.0); Neutrophils # (auto) 5.2 10 ^3/uL (1.6-8.6); Neutrophils % (auto) 84.7 % (37.0-80.0); Nucleated Red Blood Cells % 0.2 %; Red Cell Distribution Width 16.5 % (11.8-14.3); White Blood Cell 6.2 10^3/uL (4.4-10.8)
[2021-03-14 23:58] LABS: Albumin 2.9 g/dL (3.4-5.0); Calcium 10.1 mg/dL (8.5-10.1); Potassium 4.2 mmol/L (3.5-5.1)
[2021-03-15 00:14] LABS: Bilirubin, Total 0.3 mg/dL (0.2-1.0); Total Protein 7.8 g/dL (6.4-8.2)
[2021-03-15 00:30] LABS: BUN/Creatinine Ratio 42.2
[2021-03-15] MEDS ORDERED: DexAMETHasone SOD PHOS 10MG/1ML VIAL INJ IV ONE (09:15)
[2021-03-15] MEDS ORDERED: AZITHROMYCIN 500MG/ 250ML 250 ML IV ONE (09:15)
[2021-03-15] MEDS ORDERED: cefTRIAXone 1GM/50ML D5W 50 ML IV ONE (09:15)
[2021-03-15] MEDS ORDERED: MORPHINE SULFATE INJECTION 2 MG/ML SYRG IV PRN ×3 (13:15→16:30)
[2021-03-15] MEDS ORDERED: NITROGLYCERIN 0.4 MG SL TAB SL PRN ×2 (13:15→16:30)
[2021-03-15] MEDS ORDERED: ALBUTEROL SULF 2.5 MG/0.5ML(0.5%) NEB SOLN NEB ONE (16:00)
[2021-03-15] MEDS ORDERED: IPRATROPIUM BROM 0.5 MG/2.5ML INH SOL NEB ONE (16:00)
[2021-03-15] MEDS ORDERED: BUDESONIDE (INHALATION) 0.5 MG/2 ML NEB NEB ONE (16:00)
[2021-03-15] MEDS ORDERED: METOCLOPRAMIDE HCL 5MG/ml INJ 2ml VIAL IV PRN (16:30)
[2021-03-15] MEDS ORDERED: DOCUSATE SOD 100 MG CAP PO PRN (16:30)
[2021-03-15] MEDS ORDERED: ENOXAPARIN SOD 40 MG/0.4 ML SYRINGE SC ONE (16:30)
[2021-03-15] MEDS ORDERED: HYDROcodone-ACET 5/325MG TAB PO PRN (16:30)
[2021-03-15] MEDS ORDERED: ALUM & MAG HYDROX-SIMETH LIQ(MAALOX) 30 ML PO PRN (16:30)
[2021-03-15] MEDS ORDERED: TEMAZEPAM 15 MG CAP PO PRN (16:30)
[2021-03-15] MEDS ORDERED: DEXTROSE (50%) 50ML SYRG IV PRN (16:30)
[2021-03-15] MEDS ORDERED: ACETAMINOPHEN 325 MG TAB PO PRN (16:30)
[2021-03-15] MEDS: InsuLIN REG 1unit/0.01ml Soln (100units/ml) SC SCH ×2 (17:00→22:00)
[2021-03-15] MEDS: ACCU-CHEK COMFORT CURVE STRIP VI SCH ×2 (17:53→22:58)
[2021-03-15 18:44] VITALS: BP 100/66
[2021-03-15] MEDS: IPRATROPIUM BROM 0.5 MG/2.5ML INH SOL NEB SCH ×2 (19:23→23:05)
[2021-03-15] MEDS: ALBUTEROL SULF 2.5 MG/0.5ML(0.5%) NEB SOLN NEB SCH ×2 (19:23→23:05)
[2021-03-15] MEDS: BUDESONIDE (INHALATION) 0.5 MG/2 ML NEB NEB SCH (19:23)
[2021-03-15 20:04] LABS: Cholesterol 102 mg/dL (< 200); HDL Cholesterol 43 mg/dL (40-59); LDL Cholesterol 39 mg/dL (< 100); Triglycerides 123 mg/dL (< 150)
[2021-03-15 22:00] VITALS: BP 109/65
[2021-03-15] MEDS ORDERED: AMITRIPTYLINE HCL 10 MG TAB PO SCH (22:00)
[2021-03-15] MEDS ORDERED: ATORVASTATIN 20 MG TAB PO SCH (22:00)
[2021-03-15] MEDS ORDERED: HYDROcodone-ACET 5/325MG TAB PEG PRN (22:45)
[2021-03-15] MEDS ORDERED: TEMAZEPAM 15 MG CAP PEG PRN (22:45)
[2021-03-15] MEDS: methylPREDNISolone SOD SUCC 40 MG/ML VL IV SCH (22:57)
[2021-03-15] MEDS: SODIUM CHLOR 0.9% PF (SALINE LOCK) 10ML VIAL/SYR IV SCH (22:57)
[2021-03-15] MEDS: ATORVASTATIN 20 MG TAB PEG SCH (22:58)
[2021-03-15] MEDS: AMITRIPTYLINE HCL 10 MG TAB PEG SCH (22:58)
[2021-03-16 01:09] LABS: Urine Bacteria NONE SEEN /hpf (None Seen); Urine Blood Negative /uL (Negative); Urine Specific Gravity 1.014 (1.001-1.035); Urine WBC 4 /hpf (0 - 3)
[2021-03-16 01:17] LABS: Amphetamine Screen, Urine NEGATIVE (NEGATIVE); Barbiturate Scree,Urine NEGATIVE (NEGATIVE); Benzodiazephine Screen, Urine NEGATIVE (NEGATIVE); Cannabinoid Screen, Urine NEGATIVE (NEGATIVE); Cocaine Screen, Urine NEGATIVE (NEGATIVE); Opiate Scree,Urine NEGATIVE (NEGATIVE); Phencyclidine Screen, Urine NEGATIVE (NEGATIVE)
[2021-03-16] MEDS: ALBUTEROL SULF 2.5 MG/0.5ML(0.5%) NEB SOLN NEB SCH ×6 (02:55→22:00)
[2021-03-16] MEDS: IPRATROPIUM BROM 0.5 MG/2.5ML INH SOL NEB SCH ×6 (02:55→22:00)
[2021-03-16 05:00] VITALS: BP 107/64
[2021-03-16 06:16] LABS: Basophils # (auto) 0 10 ^3/uL (0-0.2); Basophils % (auto) 0.1 % (0.0-2.0); Eosinophils # (auto) 0 10 ^3/uL (0-0.8); Hematocrit 33.5 % (41.0-53.0); Hemoglobin 10.7 g/dL (13.5-17.5); Lymphocytes # (auto) 0.2 10 ^3/uL (0.4-5.4); Lymphocytes % (auto) 3.9 % (10.0-50.0); Mean Corpuscular Hemoglobin 27.2 pg (28.0-32.0); Mean Corpuscular Hgb Conc. 31.9 g/dL (32.0-36.0); Mean Corpuscular Volume 85.4 fL (80.0-100.0); Monocytes # (auto) 0.1 10 ^3/uL (0-1.3); Neutrophils # (auto) 5.1 10 ^3/uL (1.6-8.6); Nucleated Red Blood Cells % 0.3 %; Red Blood Cells 3.93 10^6/uL (4.5-5.90); Red Cell Distribution Width 16.6 % (11.8-14.3); White Blood Cell 5.4 10^3/uL (4.4-10.8)
[2021-03-16] MEDS: LEVOTHYROXINE SODIUM 25 MCG TAB PEG SCH (06:31)
[2021-03-16] MEDS: methylPREDNISolone SOD SUCC 40 MG/ML VL IV SCH ×2 (06:31→23:53)
[2021-03-16] MEDS: SODIUM CHLOR 0.9% PF (SALINE LOCK) 10ML VIAL/SYR IV SCH ×3 (06:31→23:54)
[2021-03-16] MEDS: ACCU-CHEK COMFORT CURVE STRIP VI SCH (06:32)
[2021-03-16 06:33] LABS: Calcium 10.2 mg/dL (8.5-10.1); Potassium 3.5 mmol/L (3.5-5.1)
[2021-03-16] MEDS: InsuLIN REG 1unit/0.01ml Soln (100units/ml) SC SCH (06:35)
[2021-03-16 06:37] LABS: Albumin 2.7 g/dL (3.4-5.0); BUN/Creatinine Ratio 38.1; Magnesium 2.6 mg/dL (1.6-2.6)
[2021-03-16 06:46] LABS: Bilirubin, Total 0.4 mg/dL (0.2-1.0); Phosphorus 2.9 mg/dL (2.5-4.90); Total Protein 7.3 g/dL (6.4-8.2)
[2021-03-16] MEDS ORDERED: LEVOTHYROXINE SODIUM 25 MCG TAB PO SCH (07:00)
[2021-03-16 09:32] VITALS: BP 106/66
[2021-03-16] MEDS ORDERED: AZITHROMYCIN 500MG/ 250ML 250 ML IV SCH (10:00)
[2021-03-16] MEDS ORDERED: METOCLOPRAMIDE HCL 5MG/ml INJ 2ml VIAL IV PRN (10:30)
[2021-03-16] MEDS ORDERED: Jevity 1.2 Cal/Fiber 1 Liter GT SCH (10:30)
[2021-03-16] MEDS: ENOXAPARIN SOD 40 MG/0.4 ML SYRINGE SC SCH (11:41)
[2021-03-16] MEDS: cefTRIAXone 1GM/50ML D5W 50 ML IV SCH (11:43)
[2021-03-16 13:00] VITALS: BP 102/72
[2021-03-16] MEDS: BUDESONIDE (INHALATION) 0.5 MG/2 ML NEB NEB SCH ×2 (14:56→18:50)
[2021-03-16 17:00] VITALS: BP 114/69
[2021-03-16 22:00] VITALS: BP 146/54
[2021-03-16] MEDS: AMITRIPTYLINE HCL 10 MG TAB PEG SCH (23:53)
[2021-03-16] MEDS: ATORVASTATIN 20 MG TAB PEG SCH (23:53)
[2021-03-17] MEDS: ALBUTEROL SULF 2.5 MG/0.5ML(0.5%) NEB SOLN NEB SCH ×4 (02:00→22:32)
[2021-03-17] MEDS: IPRATROPIUM BROM 0.5 MG/2.5ML INH SOL NEB SCH ×4 (02:00→22:32)
[2021-03-17 05:00] VITALS: BP 109/64
[2021-03-17] MEDS: SODIUM CHLOR 0.9% PF (SALINE LOCK) 10ML VIAL/SYR IV SCH ×3 (05:21→21:28)
[2021-03-17] MEDS: LEVOTHYROXINE SODIUM 25 MCG TAB PEG SCH (06:54)
[2021-03-17 09:00] VITALS: BP 96/57
[2021-03-17] MEDS: cefTRIAXone 1GM/50ML D5W 50 ML IV SCH (10:14)
[2021-03-17] MEDS: methylPREDNISolone SOD SUCC 40 MG/ML VL IV SCH ×2 (10:14→21:28)
[2021-03-17] MEDS ORDERED: CLINDAMYCIN 600MG IV 50 ML IV ONE (10:15)
[2021-03-17] MEDS: ENOXAPARIN SOD 40 MG/0.4 ML SYRINGE SC SCH (10:15)
[2021-03-17 12:33] LABS: Basophils # (auto) 0 10 ^3/uL (0-0.2); Basophils % (auto) 0.2 % (0.0-2.0); Eosinophils # (auto) 0 10 ^3/uL (0-0.8); Hematocrit 33.3 % (41.0-53.0); Hemoglobin 10.7 g/dL (13.5-17.5); Lymphocytes # (auto) 0.3 10 ^3/uL (0.4-5.4); Lymphocytes % (auto) 3.9 % (10.0-50.0); Mean Corpuscular Hemoglobin 27.6 pg (28.0-32.0); Mean Corpuscular Volume 86.2 fL (80.0-100.0); Monocytes # (auto) 0.5 10 ^3/uL (0-1.3); Monocytes % (auto) 5.9 % (0.0-12.0); Neutrophils # (auto) 8.1 10 ^3/uL (1.6-8.6); Red Blood Cells 3.87 10^6/uL (4.5-5.90); Red Cell Distribution Width 16.8 % (11.8-14.3)
[2021-03-17 12:42] VITALS: BP 93/59
[2021-03-17 12:49] LABS: BUN/Creatinine Ratio 39.6; Blood Urea Nitrogen 19 mg/dL (7-18); Calcium 9.6 mg/dL (8.5-10.1); Chloride 92 mmol/L (98-107); GFR African American 226 mL/min; GFR Non-African American 187 mL/min; Glucose 200 mg/dL (74-106); Potassium 3.6 mmol/L (3.5-5.1); Sodium 141 mmol/L (136-145)
[2021-03-17 14:08] LABS: Anion Gap 3.99999 (5-15); Carbon Dioxide > 45 mmol/L (21-32)
[2021-03-17] MEDS: BUDESONIDE (INHALATION) 0.5 MG/2 ML NEB NEB SCH ×2 (16:05→22:32)
[2021-03-17 17:23] VITALS: BP 109/55
[2021-03-17] MEDS: CLINDAMYCIN 600MG IV 50 ML IV SCH (17:24)
[2021-03-17] MEDS ORDERED: Glucerna Carbsteady SHAKE Vanilla 8oz PEG SCH (18:00)
[2021-03-17] MEDS: Glucerna Carbsteady SHAKE Vanilla 8oz PEG SCH (21:28)
[2021-03-17] MEDS: ATORVASTATIN 20 MG TAB PEG SCH (21:29)
[2021-03-17] MEDS: GABAPENTIN 300 MG CAP PEG SCH (21:29)
[2021-03-17] MEDS: AMITRIPTYLINE HCL 25 MG TAB PEG SCH (21:29)
[2021-03-17 22:00] VITALS: BP 100/62
[2021-03-18] MEDS: CLINDAMYCIN 600MG IV 50 ML IV SCH ×3 (01:38→18:00)
[2021-03-18] MEDS: ALBUTEROL SULF 2.5 MG/0.5ML(0.5%) NEB SOLN NEB SCH ×5 (02:15→23:06)
[2021-03-18] MEDS: IPRATROPIUM BROM 0.5 MG/2.5ML INH SOL NEB SCH ×5 (02:15→23:05)
[2021-03-18] MEDS: BUDESONIDE (INHALATION) 0.5 MG/2 ML NEB NEB SCH ×2 (05:53→23:05)
[2021-03-18] MEDS: SODIUM CHLOR 0.9% PF (SALINE LOCK) 10ML VIAL/SYR IV SCH ×3 (06:10→22:32)
[2021-03-18] MEDS: LEVOTHYROXINE SODIUM 100 MCG TAB PEG SCH (06:20)
[2021-03-18] MEDS: Glucerna Carbsteady SHAKE Vanilla 8oz PEG SCH ×5 (08:00→22:32)
[2021-03-18 09:00] VITALS: BP 119/66
[2021-03-18] MEDS: cefTRIAXone 1GM/50ML D5W 50 ML IV SCH (09:00)
[2021-03-18] MEDS: methylPREDNISolone SOD SUCC 40 MG/ML VL IV SCH ×2 (10:00→22:33)
[2021-03-18] MEDS ORDERED: IOHEXOL 350 MG/ML 100ML IJ ONE (10:12)
[2021-03-18] MEDS: GABAPENTIN 300 MG CAP PEG SCH ×2 (10:43→22:35)
[2021-03-18] MEDS: ENOXAPARIN SOD 40 MG/0.4 ML SYRINGE SC SCH (10:43)
[2021-03-18 13:00] VITALS: BP 95/57
[2021-03-18 17:00] VITALS: BP 104/64
[2021-03-18 22:00] VITALS: BP 109/65
[2021-03-18] MEDS: AMITRIPTYLINE HCL 25 MG TAB PEG SCH (22:33)
[2021-03-18] MEDS: ATORVASTATIN 20 MG TAB PEG SCH (22:34)
[2021-03-19] MEDS: CLINDAMYCIN 600MG IV 50 ML IV SCH ×2 (02:02→09:53)
[2021-03-19] MEDS: ALBUTEROL SULF 2.5 MG/0.5ML(0.5%) NEB SOLN NEB SCH ×4 (02:58→14:50)
[2021-03-19] MEDS: IPRATROPIUM BROM 0.5 MG/2.5ML INH SOL NEB SCH ×4 (02:58→14:50)
[2021-03-19 05:00] VITALS: BP 99/64
[2021-03-19] MEDS: SODIUM CHLOR 0.9% PF (SALINE LOCK) 10ML VIAL/SYR IV SCH (06:13)
[2021-03-19] MEDS: LEVOTHYROXINE SODIUM 100 MCG TAB PEG SCH (06:47)
[2021-03-19] MEDS: Glucerna Carbsteady SHAKE Vanilla 8oz PEG SCH (08:00)
[2021-03-19 08:42] VITALS: BP 103/63
[2021-03-19] MEDS: cefTRIAXone 1GM/50ML D5W 50 ML IV SCH (09:00)
[2021-03-19] MEDS: ENOXAPARIN SOD 40 MG/0.4 ML SYRINGE SC SCH (09:47)
[2021-03-19] MEDS: methylPREDNISolone SOD SUCC 40 MG/ML VL IV SCH (09:47)
[2021-03-19] MEDS ORDERED: LEVO500T31 PO (10:17)
[2021-03-19] MEDS ORDERED: CLIN300C8 PO (10:17)
[2021-03-19] MEDS ORDERED: PRED20TA2 PO (10:17)
[2021-03-19] MEDS ORDERED: PRED10TA PO (10:17)
[2021-03-19] MEDS: BUDESONIDE (INHALATION) 0.5 MG/2 ML NEB NEB SCH (10:27)
[2021-03-19 12:24] VITALS: BP 103/63
[2021-03-19] MEDS ORDERED: IOHEXOL 350 MG/ML 100ML IJ ONE (12:50)
[2021-03-19 13:45] VITALS: BP 96/56
== END 2021-03-19 16:10 | disposition home health service (06) | DRG 177 ==
LOC: EDBD 21:50 → ER 21:57 → EDUNIT# 03-15 13:13 → TELE 03-15 13:13 → TELE-CENTR 03-15 18:24 → CENTRAL 03-16 21:44
PROVIDERS: ADMIT Hospitalist; ATTEND Internal Medicine
DX: J69.0 Pneumonitis due to inhalation of food and vomit (principal); J96.21 Acute and chronic respiratory failure with hypoxia; J44.1 Chronic obstructive pulmonary disease with (acute) exacerbation; J90 Pleural effusion, not elsewhere classified; E44.0 Moderate protein-calorie malnutrition; Z68.1 Body mass index [BMI] 19.9 or less, adult; J44.0 Chronic obstructive pulmonary disease with (acute) lower respiratory infection; J84.10 Pulmonary fibrosis, unspecified; F41.9 Anxiety disorder, unspecified; F32.9 Major depressive disorder, single episode, unspecified; E03.9 Hypothyroidism, unspecified; I70.0 Atherosclerosis of aorta; E11.40 Type 2 diabetes mellitus with diabetic neuropathy, unspecified; F17.210 Nicotine dependence, cigarettes, uncomplicated; I10 Essential (primary) hypertension; N40.0 Benign prostatic hyperplasia without lower urinary tract symptoms; Z20.822 Contact with and (suspected) exposure to COVID-19; Z79.899 Other long term (current) drug therapy; Z80.0 Family history of malignant neoplasm of digestive organs; Z80.3 Family history of malignant neoplasm of breast; Z85.118 Personal history of other malignant neoplasm of bronchus and lung; Z85.819 Personal history of malignant neoplasm of unspecified site of lip, oral cavity, and pharynx; Z86.73 Personal history of transient ischemic attack (TIA), and cerebral infarction without residual deficits; Z92.3 Personal history of irradiation; Z93.1 Gastrostomy status; E78.5 Hyperlipidemia, unspecified
CPT/HCPCS: 36415; 36600; 71045; 71275; 74176; 80048; 80053; 80061; 80307; 81001; 82728; 82805; 82962; 83036; 83735; 83880; 84100; 84443; 84484; 85025; 85379; 87040; 87086; 87426; 93005; 94640; 96365; 96367; 96372; 96375; 97163; G0378; J0696; J1100; J1815; J3490